=== PATIENT | male | born 1955 | race African-American/Black ===

== ENCOUNTER 2024-11-16 09:33 | Emergency (ER) | payer OTHER, SELFPAY ==
[2024-11-16 09:45] VITALS: BP 148/96
[2024-11-16 10:20] LABS: % Basophils 0.5 % (0-2); % Eosinophils 1.2 % (0-6); % Immature Granulocytes 0.2 % (0-0.5); % Lymphocytes 16.4 % (20.5-51.1); % Monocytes 8.9 % (1.7-9.3); % Neutrophils 72.8 % (42.2-75.2); Absolute Eosinophils 0.1 10^3/uL (0-0.7); Absolute Lymphocytes 0.9 10^3/uL (1.2-3.4); Absolute Monocytes 0.5 10^3/uL (0.1-0.6); Absolute Neutrophils 4.2 10^3/uL (1.4-6.5); Hematocrit 43.9 % (39.0-52.0); Hemoglobin 13.2 g/dL (13.0-18.0); Mean Corp Hgb Conc. 30.1 g/dL (33.0-37.0); Mean Corpuscular Hgb 24.6 pg (27.0-31.0); Mean Corpuscular Volume 81.9 fL (80.0-94.0); Mean Platelet Volume 12.6 fL (7.4-10.4); Nucleated Red Blood Cells % 0 % (-); Platelet Count 158 10^3/uL (130-400); Red Blood Cell Count 5.36 10^6/uL (4.70-6.10); Red Cell Dist. Width 13.1 % (11.5-14.5); White Blood Cell Count 5.7 10^3/uL (4.8-10.8)
[2024-11-16 10:32] LABS: ALT (SGPT) 22 U/L (0-50); AST (SGOT) 24 U/L (17-59); Albumin 4.4 g/dl (3.5-5.0); Alkaline Phosphatase 83 U/L (38-126); Blood Urea Nitrogen 22 mg/dl (9-20); Calcium 8.9 mg/dl (8.4-10.2); Carbon Dioxide 30 mmol/L (22-30); Chloride 103 mmol/L (98-107); Glucose 102 mg/dl (70-99); Potassium 4.1 mmol/L (3.5-5.1); Sodium 141 mmol/L (135-145); Total Bilirubin 0.8 mg/dl (0.2-1.3); Total Protein 7.2 g/dl (6.3-8.2); eGFR 58.73
[2024-11-16 10:37] LABS: COVID-19 Antigen Negative (Negative)
[2024-11-16 12:05] VITALS: BP 176/92
[2024-11-16 13:41] VITALS: BP 146/113
[2024-11-16 13:42] VITALS: BMI 32.8
--- NOTE | 2024-11-16 13:56 | ED.GENMED ---
History of Present Illness
General
Chief Complaint: Breathing Problem
Source: patient and family
Exam Limitations: none
Time Seen by Provider: 11/16/24 13:46
History of Present Illness
History of Present Illness:
See MDM
Past History
Past History
ED Past Medical History: Arrthythmia, Cancer, COPD and HTN
ED Past Surgical History: Brain
Social History
Tobacco: Former smoker
Alcohol: None
Phy Exam
Physical Exam
Physical Exam:
See MDM
Scores
Heart Failure Risk
Heart Failure Risk Score: Not Applicable
Course
Orders/Labs/Results
Orders:
Orders
11/16/24 09:35
Electrocardiogram (*1) Urgent
Reason for Study: Shortness of Breath
EKG- Treatment ONCE
11/16/24 09:53
CR Chest - 2 Views Urgent
Comment:
Reason For Exam: SOB
11/16/24 10:01
COVID-19 Antigen Urgent
Source: Nasal Swab
Complete Blood Count/With Diff Urgent
Comprehensive Metabolic Panel Urgent
Influenza A+B Rapid Molecular Urgent
SANDRO Source: Nasal Swab
Specimen Description:
11/16/24 13:55
Diltiazem HCl [Cardizem] 10 mg IV NOW STA
Ipratropium/Albuterol Sulfate [Duoneb] 3 ml INH R NOW STA
11/16/24 15:18
Amoxicillin 875 mg/Clav 125 mg [Augmentin 875 mg/125 mg] 1 tablet PO NOW STA
Doxycycline [Vibramycin] 100 mg PO NOW STA
Abnormal Lab Results
11/16/24
10:01
MCH 24.6 L pg
(27.0-31.0)
MCHC 30.1 L g/dL
(33.0-37.0)
MPV 12.6 H fL
(7.4-10.4)
Absolute Lymphs (auto) 0.9 L 10^3/uL
(1.2-3.4)
Lymphocytes % 16.4 L %
(20.5-51.1)
BUN 22 H mg/dl
(9-20)
Glucose 102 H mg/dl
(70-99)
11/16/24 10:01
11/16/24 10:01
Vital Signs
Initial and Last Documented VS:
Initial Vital Signs
Temp Pulse Resp BP Pulse Ox
97.7 F 60 16 148/96 99
11/16/24 09:45 11/16/24 09:45 11/16/24 09:45 11/16/24 09:45 11/16/24 09:45
Last Documented Vital Signs
Temp Pulse Resp BP Pulse Ox
97.5 F 76 22 145/100 98
11/16/24 12:05 11/16/24 14:45 11/16/24 14:45 11/16/24 14:27 11/16/24 14:45
MDM/Problems Addressed
Differential Diagnosis Includes:
HPI and MDM Narrative:
69-year-old male presenting with significant other for evaluation of cough and shortness of breath. This has been ongoing for the past few days. The cough is somewhat productive and worse when he lays flat. Patient is mildly confused but this is
baseline per spouse.
Spouse is more concerned that this could be fluid in his lungs or potentially fluid around his heart. Patient does have a history of A-fib. He is not certain what are his symptoms of A-fib. Spouse believes that is mostly related to a wet cough
and leg edema. He currently does not have any leg edema. Patient is in in A-fib/a flutter rhythm. Will give dose of IV Cardizem. Patient states he has never been cardioverted in the past. Patient does have wheezing and he does have a history of
COPD. Will give dose of DuoNeb and obtain chest x-ray.
Physical exam
General: Well appearing and non-toxic
HEENT: protecting airway
Neck: appears supple
CV: No evidence of cyanosis. Regular rate, irregular rhythm
Resp: No accessory muscle use. Mild expiratory wheezing at bases
Abd: Non-distended
Extremities: Peripheral vascular disease skin changes
Neuro: alert
Psych: Normal affect
Skin: Intact
Problems Addressed including Acute and Chronic Conditions affecting care:
1. Shortness of breath
Acuity: acute
Prognosis: stable
Details: Given the wheezing, will start DuoNeb. Will obtain chest x-ray.
2. A-fib
Acuity: acute
Prognosis: stable
Details: He is rate controlled. He is not a great cardioversion candidate. Will give dose of IV Cardizem
Updates
Chest x-ray concerning for left lower lobe pneumonia. I did offer admission but patient states he feels comfortable going home. Will start doxycycline and Augmentin and discuss strict return precautions.
After Cardizem, patient is rate controlled and denies chest pain or palpitations
Differential Diagnosis (but not limited to): COPD exacerbation, pneumonia, symptomatic A-fib
Testing considered: Troponin
Drug therapy (if applicable): OTC meds, please see d/c instruction regarding Rx drugs
Amount and/or Complexity of Data Reviewed
Clinical info obtained from: Patient and spouse
External data reviewed: N/A
Labs I independently reviewed (but not limited to): White blood cell count normal
Radiology: X-ray independently reviewed: Chest x-ray consistent with left lower lobe
Pulse Ox: not hypoxic
EKG independently reviewed: A flutter, left axis, no STEMI
Him Coder: A-fib
Critical Care: N/A
Risk of Complication:
Social Determinants of health: Good social support
Discussed with other providers: N/A
Escalation of Care includes Admit/Obs: After being observed in the Emergency Department, pt stable for discharge.
Occasional wrong word or 'sound a like' substitutions may have occurred due to the inherent limitations of voice recognition software. Read the chart carefully and recognize, using context, where substitutions have occurred.
*Critical Care Note
Total Time (30-74mins, 75-104mins- exclusive of procedures): Not Applicable
ED Attending Note
-
Portions of this chart may have been created with voice recognition software.� Occasional wrong word or��sound alike� substitutions may have occurred due to the inherent limitations of voice recognition software.
Discharge Plan
Departure
Patient Disposition: Home (Routine Discharge)
Date of Disposition: 11/16/24
Time of Disposition: 15:19
Patient with high blood pressure during this ER visit?: Yes
Discharge Problem:
PNA (pneumonia)
Instructions: Atrial fibrillation, Pneumonia
Prescriptions:
New
doxycycline hyclate 100 mg capsule
100 mg PO BID Qty: 20 0RF
amoxicillin-pot clavulanate 875-125 mg tablet
1 tab PO BID Qty: 20 0RF
albuterol sulfate 2.5 mg/0.5 mL solution for nebulization
5 mg inhalation Q6H PRN (Reason: shortness of breath or wheezing) Qty: 30 0RF
No Action
furosemide 40 mg tablet
40 mg PO DAILY
atorvastatin 20 mg tablet
20 mg PO DAILY
metoprolol succinate 100 mg tablet extended release 24 hr
100 mg PO DAILY
tamsulosin 0.4 mg capsule
0.4 mg PO HS
warfarin 2 mg tablet
6 mg PO MOWEFR
lisinopril 40 mg tablet
40 mg PO DAILY
warfarin 2 mg Tablet
2 mg PO SUTUTHSA
albuterol sulfate 2.5 mg /3 mL (0.083 %) Solution For Nebulization
2.5 mg INHALATION R QID
albuterol sulfate 90 mcg/actuation Hfa Aerosol Inhaler
2 puff INHALATION Q4H
Referrals:
NONE,* [Family Provider] -
Activity Restrictions/Additional Instructions:
Please return for any worsening symptoms.
You may return at any time if you have further concerns.
Please follow up with your doctor at the first available appointment, preferably this week.
Thank you for choosing [facility].
Interventions
Interventions:
*Risk Screen - Suicide Last Done: 11/16/24 09:45
*Neglect/Abuse Screening Last Done: 11/16/24 13:44
ED- Fall Risk Assessment Last Done: 11/16/24 13:45
*ED COVID-19 Vaccine History Last Done: 11/16/24 13:44
ED- Cardiac Assessment Last Done: 11/16/24 13:45
ED- Pulmonary Assessment Last Done: 11/16/24 13:45
Discharge Date and Time
Print Language: YAKUT
[2024-11-16 14:00] VITALS: BP 145/100
[2024-11-16] MEDS: DUONEB 3 ML INH (14:19)
[2024-11-16] MEDS: CARDIZEM 10 MG IV (14:26)
[2024-11-16 14:27] VITALS: BP 145/100
[2024-11-16] MEDS: AUGMENTIN 875 MG/125 MG 1 TABLET PO (15:27)
[2024-11-16] MEDS: VIBRAMYCIN 100 MG PO (15:27)
[2024-11-16 15:31] VITALS: BP 148/99
== END 2024-11-16 15:51 | disposition home or self-care (01) ==
LOC: EMR 09:33
PROVIDERS: Emergency Medicine; EMERGENCY PHYSICIAN Student in an Organized Health Care Education/Training Program
DX: J18.9 Pneumonia, unspecified organism (principal); J44.0 Chronic obstructive pulmonary disease with (acute) lower respiratory infection; I11.0 Hypertensive heart disease with heart failure; I50.9 Heart failure, unspecified; Z87.891 Personal history of nicotine dependence
CPT/HCPCS: 99283; 94640; 96374; 71046; 80053; 85025; 87502; 87811; 93005

== ENCOUNTER 2024-11-20 06:08 | Inpatient (IN) | payer OTHER, SELFPAY ==
[2024-11-19 23:41] VITALS: BP 137/78; BMI 34.4
[2024-11-19 23:43] VITALS: BP 137/78
[2024-11-20] VITALS (40 sets, daily range): BP systolic 110–178; BP diastolic 71–116; BMI 33.8
[2024-11-20 00:03] LABS: % Basophils 0.4 % (0-2); % Immature Granulocytes 0.4 % (0-0.5); % Lymphocytes 5.4 % (20.5-51.1); % Neutrophils 80.8 % (42.2-75.2); Absolute Lymphocytes 0.4 10^3/uL (1.2-3.4); Absolute Monocytes 0.9 10^3/uL (0.1-0.6); Absolute Neutrophils 5.7 10^3/uL (1.4-6.5); Hematocrit 42.6 % (39.0-52.0); Hemoglobin 13.4 g/dL (13.0-18.0); Mean Corp Hgb Conc. 31.5 g/dL (33.0-37.0); Mean Corpuscular Hgb 24.8 pg (27.0-31.0); Mean Corpuscular Volume 78.7 fL (80.0-94.0); Mean Platelet Volume 11.9 fL (7.4-10.4); Nucleated Red Blood Cells % 0 % (-); Platelet Count 124 10^3/uL (130-400); Red Blood Cell Count 5.41 10^6/uL (4.70-6.10); Red Cell Dist. Width 13.1 % (11.5-14.5)
[2024-11-20 00:18] LABS: INR 1.36
[2024-11-20 00:21] LABS: ALT (SGPT) 23 U/L (0-50); AST (SGOT) 37 U/L (17-59); Albumin 4.5 g/dl (3.5-5.0); Alkaline Phosphatase 82 U/L (38-126); Blood Urea Nitrogen 26 mg/dl (9-20); Calcium 9.2 mg/dl (8.4-10.2); Carbon Dioxide 23 mmol/L (22-30); Chloride 104 mmol/L (98-107); Estimated Creatinine Clearance 55 ml/min; Glucose 105 mg/dl (70-99); Potassium 4.2 mmol/L (3.5-5.1); Sodium 140 mmol/L (135-145); Total Bilirubin 1.6 mg/dl (0.2-1.3); Total Protein 7.3 g/dl (6.3-8.2); eGFR 45.78
[2024-11-20 00:41] LABS: NT-proBNP 3600 pg/ml
[2024-11-20 00:54] LABS: Lactic Acid 1.8 mmol/L (0.7-2.0)
--- NOTE | 2024-11-20 00:57 | ED.GENMED ---
History of Present Illness
General
Chief Complaint: Weakness
Source: patient
Exam Limitations: none
Time Seen by Provider: 11/20/24 00:36
History of Present Illness
History of Present Illness:
See MDM
Past History
Past History
ED Past Medical History: Arrthythmia, Cancer, COPD and HTN
ED Past Surgical History: Brain
Social History
Tobacco: Former smoker
Alcohol: None
Phy Exam
Physical Exam
Physical Exam:
See MDM
Course
Orders/Labs/Results
Orders:
Orders
11/19/24 23:49
Electrocardiogram (*1) Urgent
Reason for Study: Tachycardia
EKG- Treatment ONCE
11/19/24 23:51
CMP [Comprehensive Metabolic Panel] Urgent
Complete Blood Count/With Diff Urgent
PT/INR [Prothrombin Time] Urgent
11/19/24 23:57
Lactic Acid Urgent
NT-proBNP Urgent
11/20/24 00:01
CT Head W/o Iv Contrast Urgent
Reason For Exam: fall on warfarin
11/20/24 00:03
CR Chest - 2 Views Urgent
Reason For Exam: tachycardic, recent pneumonia
11/20/24 00:57
Furosemide [Lasix] 40 mg IV NOW STA
11/20/24 01:01
Diltiazem HCl [Cardizem] 10 mg IV NOW STA
11/20/24 02:14
Diltiazem 125 mg/125 ml Nss [Cardizem] 125 mg in 125 ml IV NOW
Initial dose in mg/hr, then titrate:: 5
Titrate to keep:: Heart rate 80-100 bpm
Titrate by mg/hr:: 5 mg/hr
Frequency of titrations (minutes):: 15
Maximum dose in mg/hr:: 15
11/20/24 02:26
Catheter [Vale Placement- Treatment] ONCE
Reason for insertion: Acute Retention
11/20/24 06:00
CT Head W/o Iv Contrast Urgent
Comment:
Reason For Exam: fall, eval for bleed per rads
Abnormal Lab Results
11/19/24 11/20/24
23:51 02:08
MCV 78.7 L fL
(80.0-94.0)
MCH 24.8 L pg
(27.0-31.0)
MCHC 31.5 L g/dL
(33.0-37.0)
Plt Count 124 L D 10^3/uL
(130-400)
MPV 11.9 H fL
(7.4-10.4)
Absolute Lymphs (auto) 0.4 L 10^3/uL
(1.2-3.4)
Absolute Monos (auto) 0.9 H 10^3/uL
(0.1-0.6)
Neutrophils % 80.8 H %
(42.2-75.2)
Lymphocytes % 5.4 L %
(20.5-51.1)
Monocytes % 13.0 H %
(1.7-9.3)
PT 17.0 H Sec
(11.4-14.6)
BUN 26 H mg/dl
(9-20)
Creatinine 1.6 H mg/dL
(0.7-1.3)
Glucose 105 H mg/dl
(70-99)
Total Bilirubin 1.6 H mg/dl
(0.2-1.3)
POC Glucose 101 H mg/dl
(70-99)
11/19/24 23:51
11/19/24 23:51
Vital Signs
Initial and Last Documented VS:
Initial Vital Signs
Temp Pulse Resp BP Pulse Ox
98.3 F 135 18 137/78 96
11/19/24 23:41 11/19/24 23:41 11/19/24 23:41 11/19/24 23:41 11/19/24 23:41
Last Documented Vital Signs
Temp Pulse Resp BP Pulse Ox
98.3 F 135 30 178/116 95
11/19/24 23:41 11/20/24 02:03 11/20/24 02:03 11/20/24 02:03 11/20/24 02:03
MDM/Problems Addressed
Differential Diagnosis Includes:
HPI and MDM Narrative:
69-year-old male presenting to the emergency department for persistent weakness and frequent falls. Patient was just seen in the emergency department yesterday and diagnosed with presumed pneumonia. He was started on antibiotics. He was offered
admission at that time but patient refused. Patient presents back to the emergency department. Chest x-ray concerning for congestive heart failure. Is not certain whether or not patient is compliant with medicines. Given that patient is weak and
having trouble walking, will start IV Lasix and admit
Physical exam
General: Disheveled
HEENT: protecting airway. Dry mucous membranes
Neck: appears supple
CV: No evidence of cyanosis
Resp: No accessory muscle use. Mild crackles at bases
Abd: Non-distended
Extremities: No deformities
Neuro: alert
Psych: Flat affect
Skin: Intact
Problems Addressed including Acute and Chronic Conditions affecting care:
1. Acute exacerbation of congestive heart failure
Acuity: acute
Prognosis: stable
Details: BNP is increasing. Chest x-ray concerning for CHF exacerbation. Will start IV Lasix
2. Frequent falls
Acuity: acute
Prognosis: stable
Details: Given his age and being on blood thinners, will obtain CT head
3. Wide QRS tachycardia
Acuity: acute
Prognosis: unstable
Details: Given his history of A-fib and a flutter, will give dose of IV Cardizem
Updates
1 AM vision radiology indicating the possibility of a subdural. This is around his postsurgical site. There is no prior to compare to. Will repeat CT at 6 AM to ensure no evidence of expanding hemorrhage
2:15 AM the initial Cardizem bolus helped but he quickly went back to a tachyarrhythmia. Will place on Cardizem drip
226 AM bedside ultrasound found to have greater than 600 mL in urine. Will place catheter
Differential Diagnosis (but not limited to): Congestive heart failure, pneumonia, head injury
Testing considered: Blood cultures
Drug therapy (if applicable): OTC meds, please see d/c instruction regarding Rx drugs
Amount and/or Complexity of Data Reviewed
Clinical info obtained from: Patient
External data reviewed: N/A
Labs I independently reviewed (but not limited to): Elevated BNP
Radiology: X-ray independently reviewed: Chest x-ray with mild stage
Pulse Ox: not hypoxic
EKG independently reviewed: Wide QRS tachycardia, left bundle branch block, rate related lateral ischemic changes
Fire Alarm Dispatcher: Tachycardia
Critical Care: The high probability of a clinically significant, sudden or life threatening deterioration of the cardio pulmonary system(s) required my full and direct attention, intervention and personal management. The aggregate critical care time
was 33 minutes. This time is in addition to time spent performing reported procedures but includes the following:
[x] Data Review and interpretation
[x] Patient assessment and monitoring of vital signs
[x] Documentation
[x] Medication orders and management
Risk of Complication:
Social Determinants of health: Good social support
Discussed with other providers: Radiologist
Escalation of Care includes Admit/Obs: Given frequent falls and CHF exacerbation, will admit
Occasional wrong word or 'sound a like' substitutions may have occurred due to the inherent limitations of voice recognition software. Read the chart carefully and recognize, using context, where substitutions have occurred.
*Critical Care Note
Total Time (30-74mins, 75-104mins- exclusive of procedures): 33 min
ED Attending Note
-
Portions of this chart may have been created with voice recognition software.� Occasional wrong word or��sound alike� substitutions may have occurred due to the inherent limitations of voice recognition software.
Discharge Plan
Departure
Patient Disposition: Admit
Date of Disposition: 11/20/24
Time of Disposition: 01:02
Admit to: Telemetry
Presentation/result/management discussed w/ accepting MD/DO: Hospitalist
Discharge Problem:
Acute exacerbation of CHF (congestive heart failure), Atrial fibrillation with RVR, Acute urinary retention
Prescriptions:
No Action
furosemide 40 mg tablet
40 mg PO DAILY
atorvastatin 20 mg tablet
20 mg PO DAILY
metoprolol succinate 100 mg tablet extended release 24 hr
100 mg PO DAILY
tamsulosin 0.4 mg capsule
0.4 mg PO HS
warfarin 2 mg tablet
6 mg PO MOWEFR
lisinopril 40 mg tablet
40 mg PO DAILY
warfarin 2 mg Tablet
2 mg PO SUTUTHSA
albuterol sulfate 2.5 mg /3 mL (0.083 %) Solution For Nebulization
2.5 mg INHALATION R QID
albuterol sulfate 90 mcg/actuation Hfa Aerosol Inhaler
2 puff INHALATION Q4H
doxycycline hyclate 100 mg capsule
100 mg PO BID Qty: 20 0RF
amoxicillin-pot clavulanate 875-125 mg tablet
1 tab PO BID Qty: 20 0RF
albuterol sulfate 2.5 mg/0.5 mL solution for nebulization
5 mg inhalation Q6H PRN (Reason: shortness of breath or wheezing) Qty: 30 0RF
Referrals:
Nasir Farr DO [Family Provider] -
Interventions
Interventions:
*Risk Screen - Suicide Last Done: 11/19/24 23:41
*General Assessment Last Done: 11/19/24 23:41
*Neglect/Abuse Screening Last Done: 11/19/24 23:41
ED- Fall Risk Assessment Last Done: 11/20/24 00:20
*ED COVID-19 Vaccine History Last Done: 11/19/24 23:41
ED- Cardiac Assessment Last Done: 11/20/24 00:20
ED- Neurological Assessment Last Done: 11/20/24 00:20
ED- Pulmonary Assessment Last Done: 11/20/24 00:20
Discharge Date and Time
Print Language: POLISH
[2024-11-20] MEDS: LASIX 40 MG IV (01:13)
[2024-11-20] MEDS: CARDIZEM 10 MG IV (01:13)
[2024-11-20 02:09] LABS: Glucose - Point of Care 101 mg/dl (70-99)
[2024-11-20] MEDS: CARDIZEM 125 IV ×3 (02:25→21:20)
--- NOTE | 2024-11-20 05:10 | HPS.HSE ---
Family Physician
-
Family Physician: Nasir Farr
Chief Complaint
-
Falls and weakness
History of Present Illness
This is a 69-year-old male with a complex past medical history and unfortunately is unable to provide much history. Was present with the patient has a history of atrial fibrillation on anticoagulation, he has a preserved EF, he has a history of
benign brain tumor status post resection, he also has a history of thyroid nodules and lung nodule status post radiation, hypertension, hyperlipidemia and BPH who presents to the emergency department following a fall at home where he was called
twice before agreeing to come along with EMS.
Patient was seen in the emergency department approximately 2 days ago with a cough that sounded wet. Caregiver thought the patient might have some volume overload. At the time he was diagnosed with bronchitis and started on Augmentin and
doxycycline. Patient apparently was noncompliant. He does not take his Eliquis is not as a take the antibiotics that were prescribed including the Augmentin. He has been afebrile and caregiver denies any new cough. He had a fall today due to
weakness without loss of consciousness. There is no known seizure activity. Patient was supposedly on seizure medication but not compliant. He provides no history. He says he feels fine.
In the emergency department he was afebrile, his blood pressure was stable at 140/90 and he was tachycardic. ECG shows atrial fibrillation, likely atrial flutter with wide-complex and a 2-1 conduction. BNP was elevated at 600. Chest x-ray seems
similar to prior with small bilateral pleural effusion and mild interstitial infiltrates. CBC was unremarkable. BUN and creatinine are elevated compared to recent with a creatinine of 1.6. Electrolytes were normal.
Medical History
Past Medical History
Past Medical History: Reports Arrhythmia (Atrial fibrillation on anticoagulation), CAD (Benign brain mass s/p resection, history of lung nodules status post XRT, history of thyroid nodules pending evaluation.), HTN and Hypercholesterolemia
Past Surgical History: Reports Brain (Status post craniectomy with brain mass resection)
Social History
Unable to obtain full social history at this time due to: Dementia
Living: With Roomate
Employment: Not Employed
Family History
Family History: Not pertinent
Allergies / Home Medications
Allergies reflects when Allergies were last updated in [facility].
Home Medications with original date entered in [facility]
Allergy/Medication List:
Allergies
Allergy/AdvReac Type Severity Reaction Status Date / Time
No Known Allergies Allergy Verified 11/19/24 23:48
Home Medications
albuterol sulfate 2.5 mg/3 mL (0.083 %) solution for nebulization 2.5 mg inhalation R QID 09/11/22
albuterol sulfate 90 mcg/actuation aerosol inhaler 2 puff inhalation Q4H sob 09/11/22
atorvastatin 20 mg tablet 20 mg PO DAILY 09/11/22
lisinopril 20 mg tablet 40 mg PO DAILY Blood pressure 09/11/22
tamsulosin 0.4 mg capsule 0.4 mg PO HS 09/11/22
albuterol sulfate 2.5 mg/0.5 mL solution for nebulization 5 mg inhalation Q6H PRN shortness of breath or wheezing #30 ea 11/16/24
amoxicillin 875 mg-potassium clavulanate 125 mg tablet 1 tab PO BID #20 tabs 11/16/24
doxycycline hyclate 100 mg capsule 100 mg PO BID #20 caps 11/16/24
Diltiazem extended release 120 mg tablet, 120 mg p.o. daily
Eliquis 5 mg tablet, 5 mg p.o. twice daily
Review of Systems
-
Unable to obtain full review of systems at this time due to: Dementia
Physical Exam
Vital Signs
Vital Signs
Temp Pulse Resp BP Pulse Ox
98.3 F 93 20 136/92 94
11/19/24 23:41 11/20/24 05:00 11/20/24 05:00 11/20/24 05:00 11/20/24 05:00
Physical Exam
General: No Apparent Distress, Comfortable and Appears Chronically Ill
HEENT: NormoCephalic, Anicteric, Moist mucous membranes, Atraumatic and PERRLA
Respiratory: Clear
Cardiac: S1/S2, Irregular Rhythm and Tachycardia
Breast: Deferred by me
GI: Soft, Non Tender, Non Distended and Normal Bowel Sounds
Genito-urinary: Turbid Urine and Vale
Musculoskeletal: No Clubbing, No Cyanosis and No Edema
Skin: Warm
Neuro: Alert, Oriented (oriented to person and place, not to time) and Nonfocal/grossly intact
Hematologic/Lymphatic: No Lymphadenopathy
Psych: Calm
Laboratory Results
-
11/19/24 23:51
11/19/24 23:51
Laboratory Results
PT 17.0 Sec (11.4-14.6) H 11/19/24 23:51
INR 1.36 11/19/24 23:51
Lactic Acid 1.8 mmol/L (0.7-2.0) 11/20/24 00:06
Total Bilirubin 1.6 mg/dl (0.2-1.3) H 11/19/24 23:51
AST 37 U/L (17-59) 11/19/24 23:51
ALT 23 U/L (0-50) 11/19/24 23:51
Alkaline Phosphatase 82 U/L (38-126) 11/19/24 23:51
Data Reviewed
-
Diagnostic Radiology: Image Personally Visualized and interpreted
Medical Tests (Nuc Med, Echo, EKG etc): Image Personally Visualized and interpreted
Lab Data: Labs Reviewed by me
Old Records: Reviewed
Impression/Plan
-
IMPRESSION:
69 y.o here after a fall at home found to be in rapid SVT, ECG c/w aflutter w 2:1 conduction. BNP newly elevated at 3600. ECG is equivocal with likely small jean claude pleural effusions. No signs of significant total body volume overload. Labs notable
for worsening creatinine from 1.3 to 1.6 but may be within his baseline range. He is unfortunately a poor historian and care-give was not very helpful with specific information. CT head shows possible small bleed vs post-surgical changes. No
midline shift or mass effect.
PLAN:
1. AFIB - Known afib now in RVR and mild CHF likely due to non compliance
- admit to ivu
- patient non-compliant with eliquis, will hold for now pending repeat CT
- on diltiazem gtt, not compliant with home diltiazem 120mg
- HD stable for now
- will give gentle diuresis 20mg iv bid
- cardiology consult
2. Bronchitis - No cough but was recently seen in ED with prescription for nebs and abx. Non-compliant with either
- complete course of doxycycline for now
- prn nebs
3. HTN
- continue lisinopril 20mg daily
4. Fall - Possibly due to rapid afib
- tx of afib as above
- PTOT eval
- uncertain if patient can maintain at home by self. He has remained non-compliant with medications but seem he would take them with appropriate supervision. Case management consult
DVT PPX - SCDs pending CT scan findings
Code status - previously stated as DNR, currently full code pending re-evaluation
--- NOTE | 2024-11-20 07:32 | EDRN ---
the pt was received from the previous supervisor dials nurse Erica BARRON, the pt is resting in stretcher in the lowest position, side rails up x2, call emerson within reach, HOB elevated, call emerson within reach, no s/s of distress, the pt has no c/o chest
pain, no c/o SOB, VS WNL, no s/s of distress, when this RN received the pt he was on 10mg/hr of Cardizem and this RN titrated the pt to 15mg/hour of Cardizem via Left upper arm PIV, assessment documented in work list, respiratory currently at the
pts bedside, will continue to monitor the pt closely
[2024-11-20] MEDS: VENTOLIN NEBULES 2.5 MG INH ×4 (07:33→20:36)
--- NOTE | 2024-11-20 08:14 | EDRN ---
this RN called the receiving IVU nurse Adam BARRON and gave verbal report
--- NOTE | 2024-11-20 08:56 | W.PN.HOSP.TC ---
Today's Communication/Plan
-
see bold
Assessment / Plan
Assessment / Plan
HPI: 69-year-old male with a complex past medical history and unfortunately is unable to provide much history. Was present with the patient has a history of atrial fibrillation on anticoagulation, he has a preserved EF, he has a history of benign
brain tumor status post resection, he also has a history of thyroid nodules and lung nodule status post radiation, hypertension, hyperlipidemia and BPH who presents to the emergency department following a fall at home where he was called twice
before agreeing to come along with EMS.
Patient was seen in the emergency department approximately 2 days ago with a cough that sounded wet. Caregiver thought the patient might have some volume overload. At the time he was diagnosed with bronchitis and started on Augmentin and
doxycycline. Patient apparently was noncompliant. He does not take his Eliquis is not as a take the antibiotics that were prescribed including the Augmentin.
#Rapid atrial fibrillation, known
Patient not compliant with taking his Cardizem or Eliquis
Appreciate cardiology input, continue Cardizem drip, check echocardiogram
Continue Eliquis
#Acute on chronic heart failure with a preserved ejection fraction
Continue IV Lasix, trend creatinine, trend daily weights
#Acute urinary retention requiring Vale insertion on 11/20
Maintain Vale for 3 days, started on Flomax
Reports he is removing his bowels
#Essential hypertension
Continue lisinopril 20 mg daily
#Medical noncompliance
#Fall
Patient lives with his girlfriend, who would like him placed
Consult PT/OT
#Recent bronchitis
Finished course of doxycycline
#Cognitive impairment
Patient thinks it is 2004
Recommend neuropsychiatric testing outpatient
#Hyperlipidemia
Continue statin
#Obesity due to excess calories
Affects all aspects of care
DVT prophylaxis�Eliquis
Full code
Physical Exam
General: Obese, no acute distress
HEENT: Normocephalic, Atraumatic, EOMI, MMM
Respiratory: Bibasilar crackles
Cardiac: Normal S1/S2, tachycardic rate rate and Rhythm
GI: Soft, Nontender, Nondistended, Normal Bowel Sounds
Extremities: No Clubbing, Cyanosis
Mild lower extremity edema
Neuro: Nonfocal/Grossly Intact
Anticipated Discharge: > 48 hours
Subjective/Interval History
-
Date of Service: November 20, 2024
Patient denies chest pain, shortness of breath, palpitations. No nausea, no vomiting. No fever
Objective Data
-
Labs:
Laboratory Results
11/19/24
23:51
WBC 7.0
Hgb 13.4
Hct 42.6
Plt Count 124 L D
PT 17.0 H
INR 1.36
Sodium 140
Potassium 4.2
Chloride 104
Carbon Dioxide 23
BUN 26 H
Creatinine 1.6 H
Glucose 105 H
Calcium 9.2
Total Bilirubin 1.6 H
AST 37
ALT 23
Alkaline Phosphatase 82
Vital Signs:
Vital Signs
Temp Pulse Resp BP Pulse Ox
98.5 F 98 19 150/89 98
11/20/24 07:27 11/20/24 07:39 11/20/24 07:39 11/20/24 07:30 11/20/24 07:39
I&O
11/19/24 11/20/24 11/21/24
06:59 06:59 06:59
Output Total 1550 / 1550
Balance -1550 / -1550
--- NOTE | 2024-11-20 09:21 | PTCARENOTE ---
Patient admitted to IVU. Patient A0 x 2-3 can't tell me the year, knows the month, arm tremors, weak, speech slightly garbled. Pulled form stretcher to bed. A-fib HR 102, BP 146/88. Decreased breath sounds, coughing up thick white mucous, feels
warm, afebrile POX 98% on room air. Cardizem gtt at 15mg/hr. Plan of care reviewed, alarm placed on bed, hx of falls. Otis pain or shortness of breath, call emerson in reach
[2024-11-20] MEDS: VIBRAMYCIN 100 MG PO ×2 (09:38→20:16)
[2024-11-20] MEDS: LIPITOR 20 MG PO (09:39)
[2024-11-20] MEDS: ZESTRIL 20 MG PO (09:39)
[2024-11-20] MEDS: LASIX 20 MG IV ×2 (09:39→16:34)
--- NOTE | 2024-11-20 09:42 | CON.CAR ---
Addendum entered and electronically signed by Jerry Atkinson MD 11/20/24 12:14:
Patient seen and examined in collaboration with HOUSEKEEPER; agree with below.
-69-year-old male with paroxysmal atrial fibrillation/flutter (on Eliquis), chronic HFpEF, hypertension, hyperlipidemia, chronic LBBB, CKD, COPD, and brain tumor status-post resection admitted after a fall at home; cardiology consulted for A-fib
with RVR and suspected CHF (BNP 3600)--the patient is being treated for pneumonia as well.
-It does not appear that the patient is on Lasix at home; continue Lasix 20 mg IV BID for now.
-Continue Cardizem drip for now.
-Echocardiogram on Friday.
-Will follow.
Original Note:
Consultation
Consultation Request
Date/Time Consultation Requested: 11/20/24 6:45a
Date/Time Consultation Performed: 11/20/24 9:45a
Requesting Provider: Dr. Nielsen
Performing Provider: JUANITA Tilley for Dr. Atkinson
Reason for Consultation: acute HFpEF, rapid Afib
Medical History
-
Chief Complaint: fall
History of Present Illness:
Mr. Nichols is a 69 yo male with paroxysmal Afib/Aflutter on Eliquis, chronic HFpEF, HTN, HLD, BPH, benign brain tumor s/p resection, and is a poor historian, who presents to the ER after a fall at home. He was seen in the ER 2 days ago, diagnosed
with bronchitis and given antibiotics which he has not been taking. Concern for medication noncompliance (including Eliquis). We are consulted for rapid Afib and acute HFpEF. He reports feeling SOB at home and + cough. He states his Tahira
knows all his medications but not him. Afib rates are improved on IV Diltiazem and he was given IV Lasix in the ER.
Past Medical History
Past Medical History: Other (as above)
Past Surgical History: Other (as above)
Social History
Tobacco: Former Smoker
Alcohol: None
Personal:
Living: With Family
Employment: Retired
Family History
Family History: Unable to Obtain
Allergies / Home Medications
Allergy/AdvReac Type Severity Reaction Status Date / Time
No Known Allergies Allergy Verified 11/19/24 23:48
�Medication �Instructions �Recorded �Confirmed �Type
atorvastatin 20 mg tablet 20 mg PO DAILY 09/11/22 09/11/22 History
lisinopril 40 mg tablet 40 mg PO DAILY Blood pressure 09/11/22 09/11/22 History
doxycycline hyclate 100 mg capsule 100 mg PO BID #20 caps 11/16/24 Rx
Eliquis 11/20/24 History
Review of Systems
-
History Source: Patient
All other systems: Negative unless noted
Physical Exam
Vital Signs
Temp Pulse Resp BP Pulse Ox
98.5 F 96 22 135/80 99
11/20/24 07:27 11/20/24 08:45 11/20/24 08:45 11/20/24 08:45 11/20/24 08:45
Lab Results
11/19/24 23:51
11/19/24 23:51
Kyo-P-Utqfloscpzj Pept 3600 pg/ml 11/20/24 00:06
Physical Exam
General: Well Developed, Well Nourished and No Apparent Distress
HEENT: Normocephalic, Anicteric and Moist Mucous Membranes
Respiratory: Crackles (bibasilar), Rhonchi (b/l ) and Non Labored Respirations
Cardiac: S1/S2, Irregular Rhythm and Peripheral Edema (mild b/l LE)
Breast: Deferred by me
GI: Soft, Non Tender and Normal Bowel Sounds
Rectal: Deferred by Provider
Genito-urinary: Clear Urine
Musculoskeletal: No Clubbing and No Cyanosis
Skin: Warm and Dry
Neuro: AO x 3
Hematologic/Lymphatic: No Lymphadenopathy
Psych: Calm
Impression / Plan
-
HFpEF - acute on chronic.
- b/l pleural effusions on CXR, elevated proBNP.
- agree IV Lasix for diuresis, monitor daily weights, I&O, fluid/sodium restrictions.
Afib - rapid rates, improved with IV Diltiazem.
- [id number] VASc score is at least 3, on Eliquis at home. unsure about compliance with meds.
- he denies palpitations.
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 Ireland.
HTN - monitor on IV Diltiazem drip and continue home meds.
Bronchitis - acute, seen in ER 2 days ago, given antibiotics but did not take them.
Brain tumor - benign s/p resection.
- head CT with possible postsurgical SDH.
- per hospitalist.
Data Reviewed
-
EKG: Tracing Personally Visualized and interpreted (tachycardia with LBBB 135 bpm)
Radiology: Report Reviewed by me (CXR: small b/l pleural effusions, pulmonary edema)
Labs: Labs Reviewed by me
Old Records: Reviewed
[2024-11-20] MEDS: ELIQUIS 5 MG PO (20:16)
[2024-11-20] MEDS: FLOMAX 0.4 MG PO (20:18)
--- NOTE | 2024-11-20 21:58 | PTCARENOTE ---
Pt rec'd at change of shift eating late dinner. approx 50% consumed. Pt oriented upon assessment to name, date, place
however approx 15 mins later pt asked nursing what happened and why was he here, pt appeared confused when updated on days events.
bed alarm activated. pt repositioned with pillows. Cardizem gtt decreased to 10 mg /hr with ht rates maintaining in 70's.
[2024-11-21] VITALS (18 sets, daily range): BP systolic 91–147; BP diastolic 60–117; PULSE 90–125; O2SAT 94; BMI 33.4
[2024-11-21 04:41] LABS: Hematocrit 42.4 % (39.0-52.0); Hemoglobin 13.1 g/dL (13.0-18.0); Mean Corp Hgb Conc. 30.9 g/dL (33.0-37.0); Mean Corpuscular Hgb 24.9 pg (27.0-31.0); Mean Corpuscular Volume 80.5 fL (80.0-94.0); Mean Platelet Volume 12.5 fL (7.4-10.4); Platelet Count 123 10^3/uL (130-400); Red Blood Cell Count 5.27 10^6/uL (4.70-6.10); White Blood Cell Count 5.2 10^3/uL (4.8-10.8)
[2024-11-21 04:58] LABS: Blood Urea Nitrogen 34 mg/dl (9-20); Calcium 8.4 mg/dl (8.4-10.2); Carbon Dioxide 28 mmol/L (22-30); Chloride 98 mmol/L (98-107); Estimated Creatinine Clearance 51 ml/min; Glucose 112 mg/dl (70-99); HDL Cholesterol 38 mg/dl; LDL Cholesterol, Calculated 23 mg/dl; Magnesium 2.1 mg/dl (1.6-2.3); Potassium 3.7 mmol/L (3.5-5.1); Sodium 140 mmol/L (135-145); Total Cholesterol 75 mg/dl (50-199); Triglyceride 70 mg/dl (10-149); Very Low Density Lipoprotein 14 mg/dl (0-30); eGFR 42.57
[2024-11-21] MEDS: ELIQUIS 5 MG PO ×2 (08:01→19:45)
[2024-11-21] MEDS: VIBRAMYCIN 100 MG PO ×2 (08:01→19:45)
[2024-11-21] MEDS: LIPITOR 20 MG PO (08:02)
[2024-11-21] MEDS: ZESTRIL 20 MG PO (08:02)
[2024-11-21] MEDS: LASIX 20 MG IV (08:02)
[2024-11-21] MEDS: VENTOLIN NEBULES 2.5 MG INH ×4 (08:20→21:01)
--- NOTE | 2024-11-21 08:33 | W.PN.HOSP.TC ---
Today's Communication/Plan
-
see bold
Assessment / Plan
Assessment / Plan
HPI: 69-year-old male with a complex past medical history and unfortunately is unable to provide much history. Was present with the patient has a history of atrial fibrillation on anticoagulation, he has a preserved EF, he has a history of benign
brain tumor status post resection, he also has a history of thyroid nodules and lung nodule status post radiation, hypertension, hyperlipidemia and BPH who presents to the emergency department following a fall at home where he was called twice
before agreeing to come along with EMS.
Patient was seen in the emergency department approximately 2 days ago with a cough that sounded wet. Caregiver thought the patient might have some volume overload. At the time he was diagnosed with bronchitis and started on Augmentin and
doxycycline. Patient apparently was noncompliant. He does not take his Eliquis is not as a take the antibiotics that were prescribed including the Augmentin.
#Rapid atrial fibrillation, known
Patient not compliant with taking his Cardizem or Eliquis
Appreciate cardiology input, continue Cardizem drip, echocardiogram requested
Continue Eliquis
#Acute on chronic heart failure with a preserved ejection fraction
Hold IV Lasix secondary to BUN/creatinine
Trend creatinine, trend daily weights
#Acute kidney injury
Creatinine 1.7 today, was 1.6, was 1.3
Hold IV Lasix, hold lisinopril
Trend creatinine
#Acute urinary retention requiring Vale insertion on 11/20
Maintain Vale for 3 days, started on Flomax
Reports he is removing his bowels
#Essential hypertension
Hold lisinopril 20 mg daily due to SRIDHAR
#Medical noncompliance
#Fall
Patient lives with his girlfriend, who would like him placed
PT/OT
#Tremors
Possibly intentional tremor, monitor, consider beta-carlos
#Recent bronchitis
Finish course of doxycycline
#Cognitive impairment suspicious for dementia
Patient thinks it is 2004
TSH and B12 normal
Recommend neuropsychiatric testing outpatient
#Hyperlipidemia
Continue statin
#Obesity due to excess calories
Affects all aspects of care
DVT prophylaxis�Eliquis
Full code
Total time spent to see the patient on the floor, examine the patient, review data and lab results, discuss treatment plan with patient, nursing staff around 51 minutes.
Physical Exam
General: Obese, no acute distress
HEENT: Normocephalic, Atraumatic, EOMI, MMM
Respiratory: Bibasilar crackles
Cardiac: Normal S1/S2, tachycardic rate rate and Rhythm
GI: Soft, Nontender, Nondistended, Normal Bowel Sounds
Extremities: No Clubbing, Cyanosis
Mild lower extremity edema
Neuro: Nonfocal/Grossly Intact
Anticipated Discharge: 24 - 48 hours
Subjective/Interval History
-
Date of Service: November 21, 2024
Patient denies chest pain, shortness of breath, or palpitations. No fever, no vomiting.
Objective Data
-
Labs:
Laboratory Results
11/21/24
03:32
WBC 5.2
Hgb 13.1
Hct 42.4
Plt Count 123 L
Sodium 140
Potassium 3.7
Chloride 98
Carbon Dioxide 28
BUN 34 H
Creatinine 1.7 H
Glucose 112 H
Calcium 8.4
Vital Signs:
Vital Signs
Temp Pulse Resp BP Pulse Ox
98.2 F 120 18 109/63 97
11/21/24 07:30 11/21/24 08:23 11/21/24 08:23 11/21/24 08:02 11/21/24 07:30
I&O
11/20/24 11/21/24 11/22/24
06:59 06:59 06:59
Output Total 1550 / 1550 1275 / 1275
Balance -1550 / -1550 -1275 / -1275
--- NOTE | 2024-11-21 09:38 | PTCARENOTE ---
HR 130's Cardizem gtt titrated up to 15mg/hr. Patient alert to self, time and confused to place, ricks not recall events leading up hospitalization, speech slightly garbled. Easily re-orients, Upper extremity tremors unchanged. Vale catheter to
gravity cloudy yellow urine. Bed and chair alarms audible for safety
[2024-11-21 12:37] LABS: Vitamin B12 459 pg/ml (239-931)
[2024-11-21] MEDS: CARDIZEM 125 IV (13:21)
--- NOTE | 2024-11-21 15:41 | W.PN.CD ---
Today's Communication / Plan
-
- Continue Lasix 20 mg IV BID.
- Continue Cardizem drip for now.
- Will add low-dose metoprolol tartrate 12.5 mg BID (may be limited by blood pressure to some degree).
Impression / Plan
-
69 yo male with paroxysmal Afib/Aflutter on Eliquis, chronic HFpEF, HTN, CKD, HLD, BPH, benign brain tumor s/p resection, and is a poor historian, who presents to the ER after a fall at home. He was seen in the ER 2 days ago, diagnosed with
bronchitis and given antibiotics which he has not been taking. Concern for medication noncompliance (including Eliquis). We are consulted for rapid Afib and acute HFpEF.
HFpEF - acute on chronic.
- b/l pleural effusions on CXR, elevated proBNP.
- Continue Lasix 20 mg IV BID.
- Continue to monitor daily weights, I&O, fluid/sodium restrictions.
Afib/flutter- rapid rates
- [id number] VASc score is at least 3, on Eliquis at home. unsure about compliance with meds.
- Continue Cardizem drip for now.
- Will add low-dose metoprolol tartrate 12.5 mg BID (may be limited by blood pressure to some degree).
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 Ireland.
HTN -
-Monitor with addition of metoprolol.
CKD -
-Continue to monitor renal function.
Bronchitis - acute, seen in [facility] ER 2 days ago, given antibiotics but did not take them.
-Management as per primary team; being treated with doxycycline.
Brain tumor - benign s/p resection.
- head CT with possible postsurgical SDH.
-Management per hospitalist.
Physical Exam
Vital Signs/Labs
Vital Signs
Temp Pulse Resp BP Pulse Ox
98.1 F 111 18 101/79 96
11/21/24 10:57 11/21/24 14:15 11/21/24 13:18 11/21/24 10:57 11/21/24 10:57
11/20/24 11/21/24 11/22/24
06:59 06:59 06:59
Actual Weight 115 kg 111.6 kg
11/21/24 03:32
11/21/24 03:32
PT 17.0 Sec (11.4-14.6) H 11/19/24 23:51
INR 1.36 11/19/24 23:51
Magnesium 2.1 mg/dl (1.6-2.3) 11/21/24 03:32
Triglycerides 70 mg/dl (10-149) 11/21/24 03:32
LDL Cholesterol, Calc 23 mg/dl 11/21/24 03:32
VLDL Cholesterol, Calc 14 mg/dl (0-30) 11/21/24 03:32
HDL Cholesterol 38 mg/dl 11/21/24 03:32
11/20/24
00:06
Qtl-M-Bsdgmrhspbq Pept 3600
Physical Exam
Constitutional: No acute distress
EENT: Anicteric
Cardiovascular: Pedal edema is absent, Rhythm/rate is irregular, Systolic murmur present (2/6) and S1S2 is normal
Respiratory: Respiratory effort normal and Lungs clear to auscul.
GI: Soft
Neuro/Psych: Alert and Oriented
Other: Skin (Warm, dry)
Data Reviewed
-
Date of Service: November 21, 2024
EKG: Tracing Personally Visualized and interpreted (Telemetry: Atrial fibrillation/flutter)
Labs: Labs Reviewed by me
[2024-11-21] MEDS: LOPRESSOR 12.5 MG PO (17:11)
--- NOTE | 2024-11-21 17:45 | PTCARENOTE ---
Patient in chair most of day requires an assist of 2 for transfers form bed to chair with rolling walker. He is AO 2-3 with periods of confusion and forgetfulness, has upper extremity intention tremors. NSR in the 80's. Cardizem gtt at 15mg/hr.
Vale cloudy yellow urine to gravity. Loose non-productive cough, lungs CTA, POX 100% on room air. Eating dinner, chair alarm in place, using call emerson for assistance during the day today
[2024-11-21] MEDS: FLOMAX 0.4 MG PO (21:41)
--- NOTE | 2024-11-21 21:50 | PTCARENOTE ---
Rec'd at change of shift. PT AAO*3 but forgetful of time and place. Pt easily redirected, forgetful, and with hand tremors at baseline. VSS and SR / Aflutter on TELE monitor with HR in the 80's. Pt denies any pain or discomfort at this time. Pt
kept on bed/chair alarm for safety. Cardizem infusing as ordered. See flowchart and MAR for full pt assessment and care. Pt resting with call emerson in reach.
[2024-11-21] MEDS: LOPRESSOR PO (23:48)
[2024-11-22] VITALS (29 sets, daily range): BP systolic 90–161; BP diastolic 57–142; BMI 33.6
[2024-11-22 00:09] LABS: Urine Albumin 3+ (Neg - Trace); Urine Bilirubin 1+ (Negative); Urine Character Cloudy (Clear); Urine Color Brown; Urine Glucose Negative (Negative); Urine Ketone 1+ (Negative); Urine Leukocyte 2+ (Negative); Urine Nitrite Positive (Negative); Urine Occult Blood 4+ (Negative); Urine Specific Gravity 1.025 (<1.030); Urine Urobilinogen 1+ (Neg - 1+)
[2024-11-22 04:37] LABS: Hematocrit 40.5 % (39.0-52.0); Hemoglobin 12.7 g/dL (13.0-18.0); Mean Corp Hgb Conc. 31.4 g/dL (33.0-37.0); Mean Corpuscular Volume 79.9 fL (80.0-94.0); Mean Platelet Volume 13.6 fL (7.4-10.4); Platelet Count 123 10^3/uL (130-400); Red Blood Cell Count 5.07 10^6/uL (4.70-6.10); Red Cell Dist. Width 13.1 % (11.5-14.5); White Blood Cell Count 6.7 10^3/uL (4.8-10.8)
[2024-11-22 04:45] LABS: Blood Urea Nitrogen 49 mg/dl (9-20); Calcium 8.5 mg/dl (8.4-10.2); Carbon Dioxide 29 mmol/L (22-30); Chloride 96 mmol/L (98-107); Estimated Creatinine Clearance 42 ml/min; Glucose 108 mg/dl (70-99); Potassium 3.6 mmol/L (3.5-5.1); Sodium 136 mmol/L (135-145); eGFR 33.03
--- NOTE | 2024-11-22 05:00 | PTCARENOTE ---
Pt with villagomez in place. Urine output from 1900 at 100mL of tea/brown colored urine, Dev Beltre aware. No bloody urine or clots noted in villagomez collection container. Rec'd order for urine culture and CBC, labs sent. Bladder scan shows
no urine retaining in bladder. Pt denies any pain or discomfort with villagomez. Pt encouraged to take sips of water and report any pain or discomfort immediately. Pt resting with call emerson in reach. Plan of care ongoing.
Creatinine increase at 2.1 from 1.7 yesterday. JUANITA Alex aware.
--- NOTE | 2024-11-22 05:08 | W.PN.UPDATE ---
Update Note
Progress Note Update
Reported by the nursing staff that the patient has tea brown color urine that not new and decrease of output. Urinalysis/ urine culture ordered.
Patient afebrile and denied any urinary symptoms.
Patient is CHF and currently on fluid restriction. Lasix on hold for abnormal creatinine level and plan to trend creatinine level.
Advised the nurse to flush the villagomez, and continue monitoring for output.
Villagomez start draining after flushing, will send another urinalysis.
[2024-11-22 05:10] LABS: Urine Amorphous Seen; Urine Bacteria Many (Negative); Urine Mucus Many; Urine Red Blood Cell >100 /HPF (0-2); Urine Squamous Cell >30 /LPF (Few); Urine Urothelial Cell >30 /LPF (FEW)
[2024-11-22 06:46] LABS: Urine Albumin 3+ (Neg - Trace); Urine Bilirubin Negative (Negative); Urine Character Cloudy (Clear); Urine Color Brown; Urine Glucose Negative (Negative); Urine Ketone Negative (Negative); Urine Leukocyte 2+ (Negative); Urine Nitrite Negative (Negative); Urine Occult Blood 4+ (Negative); Urine Specific Gravity 1.025 (<1.030); Urine Urobilinogen Negative (Neg - 1+)
--- NOTE | 2024-11-22 07:31 | W.PN.CD ---
Today's Communication / Plan
-
- AFlutter with +/- AF ablation
- resume Eliquis tonight
- Resume previous diet post ablation.
- Dilt drip can be stopped post ablation.
Impression / Plan
-
69 yo male with paroxysmal Afib/Aflutter on Eliquis, chronic HFpEF, HTN, CKD, HLD, BPH, benign brain tumor s/p resection, and is a poor historian, who presents to the ER after a fall at home. He was seen in the ER 2 days ago, diagnosed with
bronchitis and given antibiotics which he has not been taking. Concern for medication noncompliance (including Eliquis). We are consulted for rapid Afib and acute HFpEF.
Afib/flutter- rapid rates
- [id number] VASc score is at least 3, on Eliquis at home. unsure about compliance with meds.
- Continues to be in atrial flutter- appears typical in nature.
- Managed medically during last week hospitalization but again with poor rate control and end organ damage with SRIDHAR
- Will plan for AFL ablation to achieve sinus rhythm.
- On Cardizem drip for now.
- Metoprolol tartrate 12.5 mg BID started.
- Case discussed with anesthesia and is noted a high risk for intubation.
- Given typical atrial flutter, will do right sided map before considering intubation for left sided flutter.
- If left sided flutter then will do the PVI as well.
- has an appointment next week, maybe Dr. Ireland.
- Consent obtained from patient and his significant other / POA - Tabitha Mcdonald onthe phone.
HFpEF - acute on chronic.
- b/l pleural effusions on CXR, elevated proBNP.
- Continue Lasix 20 mg IV BID.
- Continue to monitor daily weights, I&O, fluid/sodium restrictions.
HTN -
-Monitor with addition of metoprolol.
CKD -
-Continue to monitor renal function.
Bronchitis - acute, seen in ER 2 days ago, given antibiotics but did not take them.
-Management as per primary team; being treated with doxycycline.
Brain tumor - benign s/p resection.
- head CT with possible postsurgical SDH.
-Management per hospitalist.
Physical Exam
Vital Signs/Labs
Vital Signs
Temp Pulse Resp BP Pulse Ox
98.1 F 80 18 119/75 96
11/22/24 07:00 11/22/24 03:19 11/22/24 07:00 11/22/24 03:19 11/22/24 07:00
11/21/24 11/22/24 11/23/24
06:59 06:59 06:59
Actual Weight 111.6 kg 112.2 kg
11/22/24 04:09
11/22/24 03:28
PT 17.0 Sec (11.4-14.6) H 11/19/24 23:51
INR 1.36 11/19/24 23:51
Magnesium 2.1 mg/dl (1.6-2.3) 11/21/24 03:32
Triglycerides 70 mg/dl (10-149) 11/21/24 03:32
LDL Cholesterol, Calc 23 mg/dl 11/21/24 03:32
VLDL Cholesterol, Calc 14 mg/dl (0-30) 11/21/24 03:32
HDL Cholesterol 38 mg/dl 11/21/24 03:32
11/20/24
00:06
Bzp-T-Kqzwvutjfmh Pept 3600
Physical Exam
Constitutional: No acute distress and Comfortable
EENT: Anicteric and Moist mucous membranes
Cardiovascular: Rhythm/rate is irregular, Pedal edema present, JVD present and Systolic murmur present
Respiratory: Respiratory effort normal and Rhonchi Present
GI: Soft, Non tender, Normal bowel sounds and Distention present
Neuro/Psych: Alert, Oriented and AO x 3
Other: Cath Site
Data Reviewed
-
Date of Service: November 22, 2024
Medical Decision Making: Reviewed Test Results, Independent Historian Assessment, Test Interpretation and Review of Case with other Provider
EKG: Tracing Personally Visualized and interpreted
Echo: Report Reviewed by me
X-Ray/CT/US/MRI/NUC/PET: Image Personally Visualized and interpreted
Medical Tests (PFT, Pathology etc): Discussed with Physician, Discussed with Nurse, Discussed with Patient and Discussed with Family
Labs: Labs Reviewed by me
Old Records: Reviewed
[2024-11-22 07:57] LABS: Urine Squamous Cell 16-20 /LPF (Few)
[2024-11-22 08:03] LABS: Urine Red Blood Cell >100 /HPF (0-2)
[2024-11-22] MEDS: VENTOLIN NEBULES 2.5 MG INH ×4 (08:25→20:41)
[2024-11-22] MEDS: LIPITOR 20 MG PO (09:03)
[2024-11-22] MEDS: LOPRESSOR 12.5 MG PO ×2 (09:03→19:28)
[2024-11-22] MEDS: VIBRAMYCIN 100 MG PO ×2 (09:03→19:28)
--- NOTE | 2024-11-22 12:09 | CM ---
Reviewed chart. Met with Mr. Nichols and his girl friend to review discharge plans. He states prior to admission he resides with his girl friend. Girlfriend states that prior to admission he was not raking his mediations and not using his walker
to ambulate. She states she would like to explore SNF/Rehab. for him. She states he was in [facility] in the past and she would like him to return there if possible [facility] is [facility] to their home. Telephone call to [facility] to make
the referral. Sent the referral. Will need to pre-cert for SNF/rehab with his insurance. Medical work-up in progress. The discharge plan is to go to SNF/Rehab.-hopefully [facility] if bed available, and approved by insurance when medically
stable.
--- NOTE | 2024-11-22 13:19 | PTCARENOTE ---
pt afib/flutter, hr in the 90s, vss. pt offers no complaints at this time. report given to lab and pt off unit for procedure.
[2024-11-22 14:13] LABS: ACT-LR - POC 247 Seconds (116-155)
--- NOTE | 2024-11-22 14:45 | ITS.CL.ABL ---
Teacher Aide - Ablation
Ablation
Procedure Report:
Atrial flutter ablation:
Mr. Hussein is a very pleasant 69 yr old gentleman with medical history significant for symptomatic paroxysmal atrial fibrillation and atrial flutter is here in the EP lab for atrial flutter ablation
Date of Procedure:
11/22/2024
Indications:
Symptomatic persistent atrial flutter
Pre-Operative Diagnosis:
Persistent atrial flutter
Post-Operative Diagnosis:
Persistent atrial flutter
Procedure Performed:
Atrial flutter ablation with cavo-tricuspid isthmus line block formation
Performing Physician:
Fly Lpoez MD
Assistants:
EP staff
Anesthesia:
See anesthesia records
Detailed Description of the Procedure:
Written informed consent was obtained from the patient after a full explanation of the risks and benefits of the procedure including the risks of sedation and anesthesia.
The patient was brought to the electrophysiology laboratory in stable condition in fasting state. Continuous electrocardiographic and hemodynamic monitoring was initiated.
The initial rhythm was atrial flutter.
The procedure site was meticulously prepared with surgical scrub and allowed to dry with no pooling. Sterile draping was applied to cover the procedure site. The image intensifier was draped with sterile bag and positioned over the patient. After
infusion of local anesthetic, vascular access was obtained under ultrasound guidance and sheaths were placed over guide wire as detailed below.
The images of the ultrasound of the femoral vessels were stored in patient chart.
Sheath and Catheter Placement:
In the right femoral vein, an 8-Cameroonian sheath was placed under ultrasound guidance for use during the ablation procedure. And mapping catheter was intermittently placed in the high right atrium, right ventricle, left atrium and left ventricle. In
the left femoral vein, a 9-Fr long sheath was placed for use during intracardiac echo procedure.
The sheaths were upgraded as needed during the case. Intracardiac catheters were positioned using direct fluoroscopic guidance.� ICE catheter was placed in RA. The following catheters / sheaths were placed
Sheaths:
��������� Agilis sheath in right femoral vein upgraded from 8Fr in right femoral vein
��������� 9Fr in left femoral vein
��������� 7Fr in right femoral vein
Catheters:
��������� The Affera Sphere 9 catheter -bidirectional D/F� - at locations of HRA, RV, LA and LV.
��������� ICE catheter -AccuNav -� at locations of RA, SVC, and RV.
��������� Bard decapolar catheter � RA and CS
Heparin was initiated after the access was obtained.
Intracardiac ECHO:
An 8-Cameroonian AcuNav intracardiac ECHO (ICE) probe was advanced through the 9-Cameroonian sheath in the left femoral vein into the right atrium under fluoroscopic and ICE ultrasound image guidance and a baseline ECHO study was performed. The left atrial
size was dilated. There was trace tricuspid regurgitation. The aortic valve was grossly normal. There was normal left ventricular size and function. There is a trace pericardial effusion. The LAUREN has baseline normal velocities. The pulmonary had
good flow identified.
During the procedure, ICE was used for monitoring of complications, guidance of trans-septal puncture, monitor the catheter position and tracking ablation lesions. No change in the pericardial space noted throughout the procedure.
Electroanatomic mapping of the right atrium:
A J-tipped guidewire was advanced through the 8-Cameroonian sheath in the right femoral vein into the superior vena cava under fluoroscopic and ICE guidance. The 8-Cameroonian sheath was exchanged for an Agilis sheath which was advanced into the superior vena
cava.
Using the Sphere 9 Affera catheter advanced through Agilis sheath into the right atrium, an electroanatomic map (EAM) of the right atrium was created using the [employer]� mapping system with [employer] software mapping system.
There was borderline HV conduction noted at baseline at 55 ms.
Ablation # 1: Typical Atrial Flutter Ablation:
The flutter was mapped and was noted concentric in the CS. The RA was mapped in atrial flutter that showed typical counter clock colon CTI dependent atrial flutter.
The CTI ablation was done using radiofrequency with Affera sphere -9 ablation, open irrigation, force-sensing bidirectional ablation catheter in the cavotricuspid isthmus from the tricuspid annulus to the IVC ridge. �
The flutter terminated into sinus rhythm with ablation.
Once the ablation catheter reach near the IVC, the ablation energy was changed to pulsefield.
��������������� -Bidirectional block was confirmed across the CTI line with differential pacing.
��������������� -Double potentials were spaced greater than 98 msec apart.
��������������� -The conduction time across the CTI line from proximal CS pacing was 150 msec.
��������������� -EAM of the right atrium was obtained with coronary sinus pacing and showed a line of block at the CTI.
��������������� -The time interval just lateral to the ablation lesions was 150 msec and the lateral wall was 132 msec
��������������� - All these maneuvers confirmed the block at the CTI line.
- Post ablation HV interval was unchanged at 55msec
Patient was observed for 15 minutes and persistent block at the CTI demonstrated.
Procedure End
ICE study was done again that showed no epicardial accumulation. No complications noted.
Following the completion of the EP study, catheters were removed. The sheaths were removed and hemostasis achieved with Figure of 8 suture and manual compression after acceptable ACT is achieved.
Atrial Pressure:
Mean RA pressure was 18mmHg
Estimated Blood loss:
<10 cc
Specimens Removed:
None.
Implants / Devices:
None
Urine output:
None
Packs / Drains/ Tubes:
None
Instrument / Sponge Count Correct:
Yes
Complications of the Procedure:
None
Condition of Patient at Time of Transfer:
Hemodynamically stable with no neurological or vascular compromise.
Summary:
��������� Successful atrial flutter ablation with cavo-tricuspid isthmus line block formation.
Figures from the Procedure:
Figure 1: The electroanatomic mapping (EAM) of the left atrium with bipolar voltage (purple indicates normal electrical activity with red as no myocardial muscle electric activity indicating a line of block or scar.
--- NOTE | 2024-11-22 15:53 | PTCARENOTE ---
received pt post ablation, right groin is CDI, figure [address] pt educated on importance of keeping head flat. pt is sr, hr 90s, vss. pt offers no complaints at this time. pt educated on plan of care. call emerson within reach.
--- NOTE | 2024-11-22 18:22 | W.PN.HOSP.TC ---
Today's Communication/Plan
-
recheck labs tomorrow with Lasix and ACEI on hold.
May need IVF
Assessment / Plan
Assessment / Plan
HPI: 69-year-old male with a complex past medical history and unfortunately is unable to provide much history. Was present with the patient has a history of atrial fibrillation on anticoagulation, he has a preserved EF, he has a history of benign
brain tumor status post resection, he also has a history of thyroid nodules and lung nodule status post radiation, hypertension, hyperlipidemia and BPH who presents to the emergency department following a fall at home where he was called twice
before agreeing to come along with EMS.
Patient was seen in the emergency department approximately 2 days ago with a cough that sounded wet. Caregiver thought the patient might have some volume overload. At the time he was diagnosed with bronchitis and started on Augmentin and
doxycycline. Patient apparently was noncompliant. He does not take his Eliquis is not as a take the antibiotics that were prescribed including the Augmentin.
Pt just completed Atrial Flutter ablation
#Rapid atrial fibrillation, known
Patient not compliant with taking his Cardizem or Eliquis
as per cardio, okay to resume Eliquis
#Acute on chronic heart failure with a preserved ejection fraction
Hold IV Lasix secondary to BUN/creatinine
Trend creatinine, trend daily weights
#Acute kidney injury
Creatinine 1.3-->1.6-->1.7-->2.1
Hold IV Lasix, hold lisinopril
Trend creatinine
#Acute urinary retention requiring Vale insertion on 11/20
Maintain Vale for 3 days, started on Flomax
Reports he is removing his bowels
#Essential hypertension
Hold lisinopril 20 mg daily due to SRIDHAR
#Medical noncompliance
#Fall
Patient lives with his girlfriend, who would like him placed
PT/OT
#Tremors
Possibly intentional tremor, monitor, consider beta-carlos
#Recent bronchitis
Finish course of doxycycline
#Cognitive impairment suspicious for dementia
Patient thinks it is 2004
TSH and B12 normal
Recommend neuropsychiatric testing outpatient
#Hyperlipidemia
Continue statin
#Obesity due to excess calories
Affects all aspects of care
DVT prophylaxis�Eliquis
Full code
Anticipated Discharge: > 48 hours
Subjective/Interval History
-
Date of Service: November 22, 2024
Pt just back from atrial flutter ablation
Objective Data
-
Vital Signs:
Vital Signs
Temp Pulse Resp BP Pulse Ox
97.9 F 98 18 111/93 97
11/22/24 11:15 11/22/24 17:00 11/22/24 11:15 11/22/24 17:00 11/22/24 11:15
I&O
11/21/24 11/22/24 11/23/24
06:59 06:59 06:59
Intake Total 480 / 480 480 / 480
Output Total 1275 / 1275 590 / 590 300 / 300
Balance -1275 / -1275 -110 / -110 180 / 180
Review of Systems
-
History Source: Patient and Coordinated Provider
Constitutional: Denies Fever
EENT: Reports No Symptoms Reported
Respiratory: Reports No Symptoms
Cardiac: Reports No Symptoms
Physical Exam
-
General: Well Developed, Well Nourished and No Apparent Distress
Respiratory: Clear to Auscultation
Cardiac: Regular Rhythm
GI: Soft, Nontender and Nondistended
Musculoskeletal: No Clubbing, No Cyanosis and No Edema
Neuro: Awake and Alert
--- NOTE | 2024-11-22 18:43 | PTCARENOTE ---
pt is sr/st, vss. pt right groin cdi. figure 8 removed. pt tolerated well. pt educated on plan of care and pt verbalized understanding. call emerson within reach.
[2024-11-22 19:42] LABS: Hepatitis C Antibody Reactive (Negative)
--- NOTE | 2024-11-22 20:22 | PTCARENOTE ---
Received patient at change of shift. Patient resting in bed. Awoke to soft tactile touch. Oriented to name and time, not place. Discussed where the patient was and why. Verbalized understanding. Right femoral site clean, dry, and intact. No
swelling, ecchymosis or hematoma present. Vale intact. Bed alarm on. BP 91/57, ST w/ PVCs 100s, 96% on room air. Discussed ambulation time, and care for evening. Patient verbalized understanding. Call emerson within reach.
[2024-11-22] MEDS: FLOMAX 0.4 MG PO (20:58)
[2024-11-22] MEDS: ELIQUIS 5 MG PO (20:58)
[2024-11-23] VITALS (13 sets, daily range): BP systolic 92–139; BP diastolic 49–80; PULSE 98; O2SAT 98; BMI 33.8
[2024-11-23 04:46] LABS: Hematocrit 39.7 % (39.0-52.0); Mean Corp Hgb Conc. 30.2 g/dL (33.0-37.0); Mean Corpuscular Hgb 24.6 pg (27.0-31.0); Mean Corpuscular Volume 81.4 fL (80.0-94.0); Mean Platelet Volume 12.4 fL (7.4-10.4); Platelet Count 125 10^3/uL (130-400); Red Blood Cell Count 4.88 10^6/uL (4.70-6.10); Red Cell Dist. Width 13.2 % (11.5-14.5); White Blood Cell Count 6.4 10^3/uL (4.8-10.8)
[2024-11-23 05:14] LABS: Blood Urea Nitrogen 55 mg/dl (9-20); Carbon Dioxide 27 mmol/L (22-30); Chloride 99 mmol/L (98-107); Estimated Creatinine Clearance 52 ml/min; Glucose 140 mg/dl (70-99); Magnesium 2.2 mg/dl (1.6-2.3); Potassium 4.8 mmol/L (3.5-5.1); Sodium 138 mmol/L (135-145); eGFR 42.57
[2024-11-23] MEDS: VENTOLIN NEBULES 2.5 MG INH ×4 (07:12→20:27)
[2024-11-23] MEDS: LIPITOR 20 MG PO (08:58)
[2024-11-23] MEDS: LOPRESSOR 12.5 MG PO (08:58)
[2024-11-23] MEDS: VIBRAMYCIN 100 MG PO ×2 (08:58→19:45)
[2024-11-23] MEDS: LASIX 40 MG IV ×2 (08:58→17:11)
[2024-11-23] MEDS: ELIQUIS 5 MG PO ×2 (08:59→19:44)
[2024-11-23] MEDS: CARDIZEM CD 120 MG PO (08:59)
--- NOTE | 2024-11-23 10:03 | W.PN.CD ---
Today's Communication / Plan
-
- Hold Lisinopril, Metoprolol
- Diuresis as tolerated.
- Sinus rhythm now.
- Continue Diltiazem 120 mg QD and Eliquis 5 mg BID.
Impression / Plan
-
69 yo male with paroxysmal Afib/Aflutter on Eliquis, chronic HFpEF, HTN, CKD, HLD, BPH, benign brain tumor s/p resection, and is a poor historian, who presents to the ER after a fall at home. He was seen in the ER 2 days ago, diagnosed with
bronchitis and given antibiotics which he has not been taking. Concern for medication noncompliance (including Eliquis). We are consulted for rapid Afib and acute HFpEF.
Afib/flutter- rapid rates
- s/p AFL ablation with CTI
- Anesthesia was not comfortable for intubation - patient is too sick and right sided ablation done under moderate sedation.
- Now in sinus rhythm. Feeling better.
- [id number] VASc score is at least 3, on Eliquis at home. unsure about compliance with meds.
- [facility] - needs compliance with medications
- LAUREN was seen with ICE on the table and no clot noted.
- has an appointment next week, maybe Dr. Ireland.
HFpEF - acute on chronic.
- Elevated right atrial pressure to 19 mmHg.
- b/l pleural effusions on CXR, elevated proBNP.
- Increase Lasix to 40 mg IV BID.
- Continue to monitor daily weights, I&O, fluid/sodium restrictions.
- Borderline BP - hold lisinopril. Discontinue Metoprolol for now to improve the BP.
- Needs diuresis
HTN -
-Monitor with addition of metoprolol.
CKD -
-Continue to monitor renal function.
Bronchitis - acute, seen in [facility] ER 2 days ago, given antibiotics but did not take them.
-Management as per primary team; being treated with doxycycline.
Brain tumor - benign s/p resection.
- head CT with possible postsurgical SDH.
-Management per hospitalist.
Physical Exam
Vital Signs/Labs
Vital Signs
Temp Pulse Resp BP Pulse Ox
97.7 F 93 18 103/69 97
11/23/24 08:03 11/23/24 08:00 11/23/24 08:03 11/23/24 08:00 11/23/24 08:03
11/22/24 11/23/24 11/24/24
06:59 06:59 06:59
Actual Weight 112.2 kg 112.9 kg
11/23/24 04:16
11/23/24 04:16
PT 17.0 Sec (11.4-14.6) H 11/19/24 23:51
INR 1.36 11/19/24 23:51
Magnesium 2.2 mg/dl (1.6-2.3) 11/23/24 04:16
Triglycerides 70 mg/dl (10-149) 11/21/24 03:32
LDL Cholesterol, Calc 23 mg/dl 11/21/24 03:32
VLDL Cholesterol, Calc 14 mg/dl (0-30) 11/21/24 03:32
HDL Cholesterol 38 mg/dl 11/21/24 03:32
11/20/24
00:06
Alk-A-Jbajxemdqis Pept 3600
Physical Exam
Constitutional: No acute distress and Comfortable
EENT: Anicteric and Moist mucous membranes
Cardiovascular: Rhythm & rate is regular, Pedal edema present, JVD present and Systolic murmur present
Respiratory: Respiratory effort normal, Crackles Absent and Rhonchi Absent
GI: Soft, Distention absent and Normal bowel sounds
Neuro/Psych: Alert, Oriented, AO x 3 and Tremors
Data Reviewed
-
Date of Service: November 23, 2024
Medical Decision Making: Reviewed Test Results, Test Interpretation and Review of Case with other Provider
EKG: Tracing Personally Visualized and interpreted
Echo: Report Reviewed by me
Medical Tests (PFT, Pathology etc): Discussed with Patient
Labs: Labs Reviewed by me and Labs Ordered by me
--- NOTE | 2024-11-23 12:55 | CM ---
Reviewed chart. Telephone call to [facility] Admissions to check on status of referral . Left message. He will need pre-cert with his insurance. Telephone call to [facility] to review information needed for pre-cert. Will need to fax
clinical to ([phone]). Medical work-up in progress. The discharge plan is to go to SNF/Rehab- hopefully [facility] if approved for admission and approved by insurance when medically stable.
--- NOTE | 2024-11-23 19:26 | W.PN.HOSP.TC ---
Today's Communication/Plan
-
continue current Tx
Assessment / Plan
Assessment / Plan
HPI: 69-year-old male with a complex past medical history and unfortunately is unable to provide much history. Was present with the patient has a history of atrial fibrillation on anticoagulation, he has a preserved EF, he has a history of benign
brain tumor status post resection, he also has a history of thyroid nodules and lung nodule status post radiation, hypertension, hyperlipidemia and BPH who presents to the emergency department following a fall at home where he was called twice
before agreeing to come along with EMS.
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 Caregiver thought the patient might have some volume overload. At the time he was diagnosed with bronchitis and started on Augmentin and
doxycycline. Patient apparently was noncompliant. He does not take his Eliquis is not as a take the antibiotics that were prescribed including the Augmentin.
Pt completed Atrial Flutter ablation 11/22/24
#Rapid atrial fibrillation, known
Patient not compliant with taking his Cardizem or Eliquis
as per cardio, okay to resume Eliquis
#Acute on chronic heart failure with a preserved ejection fraction
Hold IV Lasix secondary to BUN/creatinine
Trend creatinine, trend daily weights
#Acute kidney injury
Creatinine 1.3-->1.6-->1.7-->2.1
Hold IV Lasix, hold lisinopril
Trend creatinine
#Acute urinary retention requiring Vale insertion on 11/20
Maintain Vael for 3 days, started on Flomax
Reports he is removing his bowels
#Essential hypertension
Hold lisinopril 20 mg daily due to SRIDHAR
#Medical noncompliance
#Fall
Patient lives with his girlfriend, who would like him placed
PT/OT
#Tremors
Possibly intentional tremor, monitor, consider beta-carlos
#Recent bronchitis
Finish course of doxycycline
#Cognitive impairment suspicious for dementia
Patient thinks it is 2004
TSH and B12 normal
Recommend neuropsychiatric testing outpatient
#Hyperlipidemia
Continue statin
#Obesity due to excess calories
Affects all aspects of care
DVT prophylaxis�Eliquis
Full code
Anticipated Discharge: > 48 hours
Subjective/Interval History
-
Date of Service: November 23, 2024
Much more awake and alert
Objective Data
-
Vital Signs:
Vital Signs
Temp Pulse Resp BP Pulse Ox
98.2 F 79 18 95/61 96
11/23/24 15:38 11/23/24 18:00 11/23/24 16:25 11/23/24 15:36 11/23/24 16:25
I&O
11/22/24 11/23/24 11/24/24
06:59 06:59 06:59
Intake Total 480 / 480 480 / 480 1440 / 1440
Output Total 590 / 590 650 / 650 825 / 825
Balance -110 / -110 -170 / -170 615 / 615
Review of Systems
-
History Source: Patient and Coordinated Provider
Constitutional: Denies Fever
EENT: Reports No Symptoms Reported
Respiratory: Reports No Symptoms
Cardiac: Reports No Symptoms
Physical Exam
-
General: Well Developed, Well Nourished and No Apparent Distress
Respiratory: Clear to Auscultation
Cardiac: Regular Rhythm
GI: Soft, Nontender and Nondistended
Musculoskeletal: No Clubbing, No Cyanosis and No Edema
Neuro: Awake and Alert
--- NOTE | 2024-11-23 20:15 | PTCARENOTE ---
Pt rec'd sitting in recliner chair. Harsh non productive cough noted. lungs diminished throughout. Sinus on telemetry. Right groin drsg dry and intact.
[2024-11-23] MEDS: FLOMAX 0.4 MG PO (21:24)
--- NOTE | 2024-11-23 22:37 | PTCARENOTE ---
Pt assisted back to bed, gait unsteady, shaky even with walker. Resting on his side at present. no c/o pain. call emerson within reach.
[2024-11-24] VITALS (8 sets, daily range): BP systolic 79–132; BP diastolic 62–88; BMI 33.9
[2024-11-24] MEDS: CARDIZEM CD 120 MG PO (08:30)
[2024-11-24] MEDS: LIPITOR 20 MG PO (08:30)
[2024-11-24] MEDS: ELIQUIS 5 MG PO ×2 (08:30→21:03)
[2024-11-24] MEDS: LASIX 40 MG IV ×2 (08:30→16:22)
[2024-11-24] MEDS: VIBRAMYCIN 100 MG PO ×2 (08:30→21:03)
--- NOTE | 2024-11-24 09:46 | W.PN.CD ---
Today's Communication / Plan
-
Now that he is in sinus will proceed with echo
Likely move to PO Lasix tomorrow
Review echo results and adjust GDMT over time as BP/Cr allow, further optimization can be pursued as outpatient
Impression / Plan
-
69 yo male with paroxysmal Afib/Aflutter on Eliquis, chronic HFpEF, HTN, CKD, HLD, BPH, benign brain tumor s/p resection, and is a poor historian, who presents to the ER after a fall at home. He was seen in the ER 2 days ago, diagnosed with
bronchitis and given antibiotics which he has not been taking. Concern for medication noncompliance (including Eliquis). We are consulted for rapid Afib and acute HFpEF.
Typical atrial flutter
- s/p typical atrial flutter ablation 11/22/2024
- Too sick for PVI
- [id number] VASc score is at least 3 (HF, age1, HTN), on Eliquis
- has an appointment next week, maybe Dr. Ireland.
HFpEF - acute on chronic.
- Elevated right atrial pressure to 19 mmHg.
- b/l pleural effusions on CXR, elevated proBNP.
- Increased Lasix to 40 mg IV BID.
- Continue to monitor daily weights, I&O, fluid/sodium restrictions.
- Borderline BP - lisinopril is on hold and his metoprolol was stopped for now to improve the BP.
- Needs diuresis
- Echo ordered for today 11/24/2024 now that he is in sinus
HTN, monitor with addition of metoprolol.
CKD, Continue to monitor renal function.
Bronchitis - acute, seen in [facility] ER 2 days ago, given antibiotics but did not take them.
-Management as per primary team; being treated with doxycycline.
Hx of brain tumor - benign s/p resection.
- head CT with possible postsurgical SDH.
-Management per hospitalist.
Subjective:
Feels better.
Physical Exam
Vital Signs/Labs
Vital Signs
Temp Pulse Resp BP Pulse Ox
98.1 F 80 16 93/63 97
11/24/24 06:46 11/24/24 08:01 11/24/24 08:01 11/24/24 04:40 11/24/24 08:01
11/23/24 11/24/24 11/25/24
06:59 06:59 06:59
Actual Weight 113.3 kg
11/23/24 04:16
11/23/24 04:16
PT 17.0 Sec (11.4-14.6) H 11/19/24 23:51
INR 1.36 11/19/24 23:51
Magnesium 2.2 mg/dl (1.6-2.3) 11/23/24 04:16
Triglycerides 70 mg/dl (10-149) 11/21/24 03:32
LDL Cholesterol, Calc 23 mg/dl 11/21/24 03:32
VLDL Cholesterol, Calc 14 mg/dl (0-30) 11/21/24 03:32
HDL Cholesterol 38 mg/dl 11/21/24 03:32
11/20/24
00:06
Gym-I-Mabdyagzzgk Pept 3600
Physical Exam
Constitutional: No acute distress
EENT: Anicteric
Cardiovascular: Rhythm & rate is regular and Pedal edema is absent
Respiratory: Respiratory effort normal and Crackles Present (at bases)
GI: Soft and Distention absent
Neuro/Psych: Alert
Data Reviewed
-
Date of Service: November 24, 2024
--- NOTE | 2024-11-24 10:15 | PTCARENOTE ---
Patient awake and alert sitting on side of bed forgetful, upper extremity tremors, speech slightly garbled. NSR BBB, trace ankle edema. Vale to gravity cloudy yellow urine. Bed alarm audible, hx of falls
--- NOTE | 2024-11-24 10:24 | W.PN.UPDATE ---
Update Note
Progress Note Update
I spoke with patient's contact and his knitting demonstrator is Dr. Castrejon ([facility]). They were unable to make a follow-up appointment within the next few weeks over the phone, but will call to schedule this.
--- NOTE | 2024-11-24 12:45 | CM ---
Reviewed chart. Telephone call to [facility] to check on bed availability. [facility] states their Liaison Maira will be in to see him today to see if he will sign the paperwork for Medical assistance detention care application.
If he signs the paperwork, then the maybe able to accept him. Faxed clinical information to [facility] to start the pre-cert process for SNF/Rehab. Met with to review with him. Medical work-up in progress. The discharge plan is
to SNF if approved by his insurance and bed available when medically stable.
--- NOTE | 2024-11-24 13:57 | PTCARENOTE ---
patient sent to for his ECHO on a stretcher
--- NOTE | 2024-11-24 14:32 | CARDSERVLU ---
Echocardiogram with [facility]ason completed after protocol screening completed. Allergies verified.
Patent IV site: __Left arm 20 G PC___
IV site flushed with 0.9% NaCl pre and post administration.
Diluted bolus method utilized to enhance visualization of ventricular goldberg.
Total volume given: ___3_ mL
Patient tolerated all procedures well without complications.
No change in status.
--- NOTE | 2024-11-24 18:25 | W.PN.HOSP.TC ---
Today's Communication/Plan
-
diuretic as per Cardio
follow labs
Assessment / Plan
Assessment / Plan
HPI: 69-year-old male with a complex past medical history and unfortunately is unable to provide much history. Was present with the patient has a history of atrial fibrillation on anticoagulation, he has a preserved EF, he has a history of benign
brain tumor status post resection, he also has a history of thyroid nodules and lung nodule status post radiation, hypertension, hyperlipidemia and BPH who presents to the emergency department following a fall at home where he was called twice
before agreeing to come along with EMS.
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 Caregiver thought the patient might have some volume overload. At the time he was diagnosed with bronchitis and started on Augmentin and
doxycycline. Patient apparently was noncompliant. He does not take his Eliquis is not as a take the antibiotics that were prescribed including the Augmentin.
Pt completed Atrial Flutter ablation 11/22/24
#Rapid atrial fibrillation, known
Patient not compliant with taking his Cardizem or Eliquis
as per cardio, okay to resume Eliquis
#Acute on chronic heart failure with a preserved ejection fraction
Hold IV Lasix secondary to BUN/creatinine
Trend creatinine, trend daily weights
#Acute kidney injury
Creatinine 1.3-->1.6-->1.7-->2.1-->1.7
Resumed IV Lasix, holding lisinopril
Trend creatinine
#Acute urinary retention requiring Vale insertion on 11/20
Maintain Vale for 3 days, started on Flomax
Reports he is removing his bowels
#Essential hypertension
Hold lisinopril 20 mg daily due to SRIDHAR
#Medical noncompliance
#Fall
Patient lives with his girlfriend, who would like him placed
PT/OT
#Tremors
Possibly intentional tremor, monitor, consider beta-carlos
#Recent bronchitis
Finish course of doxycycline
#Cognitive impairment suspicious for dementia
Patient thinks it is 2004
TSH and B12 normal
Recommend neuropsychiatric testing outpatient
#Hyperlipidemia
Continue statin
#Obesity due to excess calories
Affects all aspects of care
DVT prophylaxis�Eliquis
Full code
Anticipated Discharge: 24 - 48 hours
Subjective/Interval History
-
Date of Service: November 24, 2024
Awake, alert, sitting in chair
Objective Data
-
Vital Signs:
Vital Signs
Temp Pulse Resp BP Pulse Ox
98.1 F 84 20 122/71 99
11/24/24 15:06 11/24/24 16:26 11/24/24 15:06 11/24/24 16:26 11/24/24 15:06
I&O
11/23/24 11/24/24 11/25/24
06:59 06:59 06:59
Intake Total 480 / 480 1680 / 1680
Output Total 650 / 650 1425 / 1425 1100 / 1100
Balance -170 / -170 255 / 255 -1100 / -1100
Review of Systems
-
History Source: Patient and Coordinated Provider
Constitutional: Denies Fever
EENT: Reports No Symptoms Reported
Respiratory: Reports No Symptoms
Cardiac: Reports No Symptoms
Physical Exam
-
General: Well Developed, Well Nourished and No Apparent Distress
Respiratory: Clear to Auscultation
Cardiac: Regular Rhythm
GI: Soft, Nontender and Nondistended
Musculoskeletal: No Clubbing, No Cyanosis and No Edema
Neuro: Awake and Alert
[2024-11-24] MEDS: FLOMAX 0.4 MG PO (21:03)
[2024-11-25] VITALS (11 sets, daily range): BP systolic 102–140; BP diastolic 60–89; PULSE 88–99; O2SAT 98; BMI 33.6
--- NOTE | 2024-11-25 00:36 | PTCARENOTE ---
Pt oob in recliner chair at change of shift. Back to bed with assist of 1 and walker at HS following partial bath in bathroom. Passed moderate soft stool. Sinus on telemetry. back in bed at present with bed alarm activated. call emerson within reach.
[2024-11-25 04:40] LABS: Blood Urea Nitrogen 49 mg/dl (9-20); Calcium 8.7 mg/dl (8.4-10.2); Carbon Dioxide 34 mmol/L (22-30); Chloride 95 mmol/L (98-107); Estimated Creatinine Clearance 67 ml/min; Glucose 99 mg/dl (70-99); Potassium 4.2 mmol/L (3.5-5.1); Sodium 136 mmol/L (135-145); eGFR 58.73
[2024-11-25] MEDS: LIPITOR 20 MG PO (07:56)
[2024-11-25] MEDS: ELIQUIS 5 MG PO ×2 (07:56→21:13)
[2024-11-25] MEDS: CARDIZEM CD 120 MG PO (07:56)
[2024-11-25] MEDS: LASIX 40 MG IV ×2 (07:56→15:45)
[2024-11-25] MEDS: VIBRAMYCIN 100 MG PO ×2 (07:56→21:13)
--- NOTE | 2024-11-25 09:14 | PTCARENOTE ---
Assumed care. Patient AO x3, garbled speech, intention tremors upper extremities. SR BBB. Occasional cough, lungs decreased. Folet removed at 0330, voided 75 cc of cloudy yellow urine in the urinal. Sitting on side of bed, walked to the bathroom and
back with rolling walker. Bed and chair alarms audible, does sometimes forget to call for assistance. Breakfast ordered, in the chair and call emerson in reach
--- NOTE | 2024-11-25 10:08 | W.PN.CD ---
Today's Communication / Plan
-
- D/c Dilt
- Start metoprolol
- Reduce Lisinopril
- Continue diuresis.
Impression / Plan
-
69 yo male with paroxysmal Afib/Aflutter on Eliquis, chronic HFpEF, HTN, CKD, HLD, BPH, benign brain tumor s/p resection, and is a poor historian, who presents to the ER after a fall at home. He was seen in the ER 2 days ago, diagnosed with
bronchitis and given antibiotics which he has not been taking. Concern for medication noncompliance (including Eliquis). We are consulted for rapid Afib and acute HFpEF.
Typical atrial flutter
- s/p typical atrial flutter ablation 11/22/2024
- has hx of PAF - followed by his doll surgeon is Dr. Castrejon ([facility])
- Too sick for PVI
- [id number] VASc score is at least 3 (HF, age1, HTN), on Eliquis
- Needs follow up appointment with Dr. Castrejon. Pt will call to get early appt. Called and informed with cardiology office regarding updates about the patient.
HFmEF - acute on chronic.
- ECHO 11/24/24: LVEF 45%. global hypokinesis. (Sinus rhythm with better rates)
- Elevated right atrial pressure to 19 mmHg.
- b/l pleural effusions on CXR, elevated proBNP.
- Continue Lasix to 40 mg IV BID.
- Continue to monitor daily weights, I&O, fluid/sodium restrictions.
- Will discontinue Diltiazem and start Metoporlol 12.5 mg BID. Decrease lisinopril to 5 mg QD.
- Cr is improving with diuresis. With SRIDHAR, will hold starting of Spironolactone for now.
- Needs diuresis
- Echo ordered for today 11/24/2024 now that he is in sinus
HTN,
- Labile BP
- Restarting metoprolol. reduce Lisinopril
- Continue diuresis.
CKD,
- Acute on chornic
- Continue to monitor renal function.
Bronchitis - acute, seen in ER 2 days ago, given antibiotics but did not take them.
-Management as per primary team; being treated with doxycycline.
Hx of brain tumor - benign s/p resection.
- head CT with possible postsurgical SDH.
-Management per hospitalist.
Subjective:
Feels better.
Physical Exam
Vital Signs/Labs
Vital Signs
Temp Pulse Resp BP Pulse Ox
98.3 F 84 20 132/79 97
11/25/24 06:49 11/25/24 06:48 11/25/24 06:49 11/25/24 06:48 11/25/24 06:49
11/24/24 11/25/24 11/26/24
06:59 06:59 06:59
Actual Weight 113.3 kg 112.2 kg
11/23/24 04:16
11/25/24 03:48
PT 17.0 Sec (11.4-14.6) H 11/19/24 23:51
INR 1.36 11/19/24 23:51
Magnesium 2.2 mg/dl (1.6-2.3) 11/23/24 04:16
Triglycerides 70 mg/dl (10-149) 11/21/24 03:32
LDL Cholesterol, Calc 23 mg/dl 11/21/24 03:32
VLDL Cholesterol, Calc 14 mg/dl (0-30) 11/21/24 03:32
HDL Cholesterol 38 mg/dl 11/21/24 03:32
11/20/24
00:06
Qba-S-Vbduqmntqys Pept 3600
Physical Exam
Constitutional: No acute distress and Comfortable
EENT: Anicteric and Moist mucous membranes
Cardiovascular: Rhythm & rate is regular, Pedal edema present, JVD present and Systolic murmur present
Respiratory: Respiratory effort normal, Wheeze Absent and Crackles Absent
GI: Soft, Non tender and Normal bowel sounds
Neuro/Psych: Alert, Oriented, AO x 3 and Motor deficits absent
Other: Cath Site
Data Reviewed
-
Date of Service: November 25, 2024
Medical Decision Making: Reviewed Test Results, Independent Historian Assessment, Test Interpretation and Review of Case with other Provider
EKG: Tracing Personally Visualized and interpreted
Echo: Report Reviewed by me
Labs: Labs Reviewed by me
Old Records: Reviewed
--- NOTE | 2024-11-25 10:35 | PTCARENOTE ---
Voided 800 cc of yellow urine in the urinal
--- NOTE | 2024-11-25 12:54 | CM ---
Reviewed chart. Received telephone call from [facility]mission to check on SNF/ Auth. Telephone call to [facility] to check on status. Still pending. Medial work-up in progress. The discharge plan is to go to [facility] SNF if
approve by insurance and bed available when medically stable.
--- NOTE | 2024-11-25 17:23 | W.PN.HOSP.TC ---
Today's Communication/Plan
-
potential dc tomorrow
Assessment / Plan
Assessment / Plan
HPI: 69-year-old male with a complex past medical history and unfortunately is unable to provide much history. Was present with the patient has a history of atrial fibrillation on anticoagulation, he has a preserved EF, he has a history of benign
brain tumor status post resection, he also has a history of thyroid nodules and lung nodule status post radiation, hypertension, hyperlipidemia and BPH who presents to the emergency department following a fall at home where he was called twice
before agreeing to come along with EMS.
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 Caregiver thought the patient might have some volume overload. At the time he was diagnosed with bronchitis and started on Augmentin and
doxycycline. Patient apparently was noncompliant. He does not take his Eliquis is not as a take the antibiotics that were prescribed including the Augmentin.
Pt completed Atrial Flutter ablation 11/22/24
#Rapid atrial fibrillation, known
Patient not compliant with taking his Cardizem or Eliquis
as per cardio, okay to resume Eliquis
Now in NSR post ablation
#Acute on chronic heart failure with a preserved ejection fraction
Trend creatinine, trend daily weights
#Acute kidney injury
Creatinine 1.3-->1.6-->1.7-->2.1-->1.7-->1.3
Resumed IV Lasix, holding lisinopril
Trend creatinine
#Acute urinary retention requiring Vale insertion on 11/20
Maintained Vale for 3 days, started on Flomax
Reports he is removing his bowels. Vale removed
#Essential hypertension
Hold lisinopril 20 mg daily due to SRIDHAR
reviewed situation with Dr. Lopez
Lisinopril is now 5 mg daily and will resume
will change Lasix to 40 mg po bid
#Medical noncompliance
#Fall
Patient lives with his girlfriend, who would like him placed
PT/OT
As per CM, should have arrangements completed for dc tomorrow
#Tremors
Possibly intentional tremor, monitor, consider beta-carlos
#Recent bronchitis
Finish course of doxycycline, will complete tonight
#Cognitive impairment suspicious for dementia
Patient thinks it is 2004
TSH and B12 normal
Recommend neuropsychiatric testing outpatient
#Hyperlipidemia
Continue statin
#Obesity due to excess calories
Affects all aspects of care
DVT prophylaxis�Eliquis
Full code
Anticipated Discharge: 24 - 48 hours
Subjective/Interval History
-
Date of Service: November 25, 2024
Appears comfortable. Sitting in chair watching TV
Objective Data
-
Vital Signs:
Vital Signs
Temp Pulse Resp BP Pulse Ox
98.2 F 89 20 111/70 100
11/25/24 14:38 11/25/24 14:38 11/25/24 14:38 11/25/24 14:38 11/25/24 14:38
I&O
11/24/24 11/25/24 11/26/24
06:59 06:59 06:59
Intake Total 1680 / 1680 600 / 600 600 / 600
Output Total 1425 / 1425 2450 / 2450 1250 / 1250
Balance 255 / 255 -1850 / -1850 -650 / -650
Review of Systems
-
History Source: Patient and Coordinated Provider
Constitutional: Denies Fever
EENT: Reports No Symptoms Reported
Respiratory: Reports No Symptoms
Cardiac: Reports No Symptoms
Physical Exam
-
General: Well Developed, Well Nourished, No Apparent Distress and Comfortable
HEENT: Normocephalic, Atraumatic and Moist Mucous Membranes
Respiratory: Clear to Auscultation
Cardiac: Regular Rhythm and S1/S2
GI: Soft, Nontender and Nondistended
Musculoskeletal: No Clubbing, No Cyanosis and No Edema
[2024-11-25] MEDS: TOPROL XL 12.5 MG PO (21:13)
[2024-11-25] MEDS: FLOMAX 0.4 MG PO (23:05)
--- NOTE | 2024-11-26 01:45 | PTCARENOTE ---
Rec'd pt at change shift. AAO*3, VSS, and SR on TELE monitor. Pt denies any pain or discomfort and updated on plan of care. Pt resting with call emerson in reach and plan of care ongoing. See pt flowchart and MAR for full pt assessment and care.
[2024-11-26 03:55] VITALS: BP 112/64
--- NOTE | 2024-11-26 04:24 | PTCARENOTE ---
Bed alarm triggered. Pt found sitting on side of the bed and IV was removed and found on top of the pt's gown. Attempted to reposition pt back into supine position in bed. Pt refused. Attempted to get pt into chair however pt refused. Pt raised
voice stating 'leave me alone, I just want to be left alone.' Pt supervised by this RN and continued to sit at bedside under RN supervision. Pt watched television at side of bed for 15 minutes. Vital signs then obtained. Bedding and gown
changed. Pt agreed to lay supine in bed and bed alarm was activated.
Rn attempted to place new IV and obtain morning blood work, however pt explained 'that's not important wait for the doctor.' RN explained need for IV and morning blood work but pt insisted that blood work not be done.
Pt now resting in bed with bed alarm active and call emerson in reach. Plan of care ongoing.
[2024-11-26 07:10] VITALS: BP 106/67
--- NOTE | 2024-11-26 07:44 | W.PN.CD ---
Today's Communication / Plan
-
- On Oral diuretics now
- Stable regimen.
- Follow up with local cardiology in 1-2 weeks.
- continue Metoprolol, lisinopril and Eliquis.
- Stable for discharge from cardiac stand point.
Impression / Plan
-
69 yo male with paroxysmal Afib/Aflutter on Eliquis, chronic HFpEF, HTN, CKD, HLD, BPH, benign brain tumor s/p resection, and is a poor historian, who presents to the ER after a fall at home. He was seen in the ER 2 days ago, diagnosed with
bronchitis and given antibiotics which he has not been taking. Concern for medication noncompliance (including Eliquis). We are consulted for rapid Afib and acute HFpEF.
Typical atrial flutter
- s/p typical atrial flutter ablation 11/22/2024
- has hx of PAF - followed by his travel guide is Dr. Castrejon ([facility])
- Too sick for PVI
- [id number] VASc score is at least 3 (HF, age1, HTN), on Eliquis
- Needs follow up appointment with Dr. Castrejon. Pt will call to get early appt. Called and informed with cardiology office regarding updates about the patient.
HFmEF - acute on chronic.
- ECHO 11/24/24: LVEF 45%. global hypokinesis. (Sinus rhythm with better rates)
- Elevated right atrial pressure to 19 mmHg.
- b/l pleural effusions on CXR, elevated proBNP.
- now on Lasix to 40 mg PO BID.
- Continue to monitor daily weights, I&O, fluid/sodium restrictions.
- Discontinued Diltiazem and started Metoprolol 12.5 mg BID. Decrease lisinopril to 5 mg QD.
- Cr is improving with diuresis. With SRIDHAR, will hold starting of Spironolactone for now. start as outpatient.
- Needs diuresis
- Echo on 11/24/2024 - global mild hypokinesis.
HTN,
- Labile BP
- Restarting metoprolol. reduce Lisinopril
- Continue diuresis.
CKD,
- Acute on chronic
- Continue to monitor renal function.
Bronchitis - acute, seen in ER prior to admission, given antibiotics but did not take them.
-Management as per primary team; being treated with doxycycline.
Hx of brain tumor - benign s/p resection.
- head CT with possible postsurgical SDH.
-Management per hospitalist.
Subjective:
Feels better.
Physical Exam
Vital Signs/Labs
Vital Signs
Temp Pulse Resp BP Pulse Ox
98.2 F 83 18 106/67 99
11/26/24 07:12 11/26/24 07:10 11/26/24 07:12 11/26/24 07:10 11/26/24 07:12
11/25/24 11/26/24 11/27/24
06:59 06:59 06:59
Actual Weight 112.2 kg
11/23/24 04:16
PT 17.0 Sec (11.4-14.6) H 11/19/24 23:51
INR 1.36 11/19/24 23:51
Magnesium 2.2 mg/dl (1.6-2.3) 11/23/24 04:16
Triglycerides 70 mg/dl (10-149) 11/21/24 03:32
LDL Cholesterol, Calc 23 mg/dl 11/21/24 03:32
VLDL Cholesterol, Calc 14 mg/dl (0-30) 11/21/24 03:32
HDL Cholesterol 38 mg/dl 11/21/24 03:32
11/20/24
00:06
Pro-Z-Rmlmtcwyurf Pept 3600
Physical Exam
Constitutional: No acute distress and Comfortable
EENT: Anicteric and Moist mucous membranes
Cardiovascular: Rhythm & rate is regular, Pedal edema is absent, JVD present and Systolic murmur present
Respiratory: Respiratory effort normal, Wheeze Absent and Crackles Absent
GI: Soft, Non tender and Normal bowel sounds
Neuro/Psych: Alert and Oriented
Other: Skin
Data Reviewed
-
Date of Service: November 26, 2024
Medical Decision Making: Reviewed Test Results, Test Interpretation and Review of Case with other Provider
EKG: Tracing Personally Visualized and interpreted
Echo: Report Reviewed by me
Labs: Labs Reviewed by me
Old Records: Reviewed
[2024-11-26] MEDS: TOPROL XL 12.5 MG PO (08:08)
[2024-11-26] MEDS: ELIQUIS 5 MG PO (08:08)
[2024-11-26] MEDS: LASIX 40 MG PO (08:08)
[2024-11-26] MEDS: LIPITOR 20 MG PO (08:08)
[2024-11-26] MEDS: ZESTRIL 5 MG PO (08:09)
--- NOTE | 2024-11-26 09:20 | PTCARENOTE ---
Rec'd pt this shift awake and alert in bed. Pt NSR on monitor. Pt denies N/V and abdominal pain. Pt c/o rt shoulder pain. Tylenol given. Pt on RA, lungs clear. See worklist for VS/I and O and assessments.
--- NOTE | 2024-11-26 09:58 | CM ---
Addendum entered by Argentina Cash 11/26/24 13:23:
Mr Nichols is ready for transfer to [facility] today. The telephone number for report is [phone] and the fax number is [phone]. Unit Sec. made ambulance arrangements with [facility] for 2:00p.m. transport time. Updated Mr. Nichols
and his significant other, Tahira. Telephone call to [facility]missions to update them on transfer date and time. The discharge plan is to go to [facility] when medically stable.
Original Note:
Reviewed chart. Received approval for SNF Rehab. at [facility]. The Auth. Number is [id number], ( 11/25/24 to 12/25/24) LCD 12/24/24. TT attending physician regarding bed availability and if medically stable for transfer. Medical work-up in
progress. The discharge plan is to go to [facility] when medically stable.
[2024-11-26 11:47] VITALS: BP 90/62
--- NOTE | 2024-11-26 12:11 | W.PN.HOSP.TC ---
Today's Communication/Plan
-
dc to SNF
Assessment / Plan
Assessment / Plan
HPI: 69-year-old male with a complex past medical history and unfortunately is unable to provide much history. Was present with the patient has a history of atrial fibrillation on anticoagulation, he has a preserved EF, he has a history of benign
brain tumor status post resection, he also has a history of thyroid nodules and lung nodule status post radiation, hypertension, hyperlipidemia and BPH who presents to the emergency department following a fall at home where he was called twice
before agreeing to come along with EMS.
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 Caregiver thought the patient might have some volume overload. At the time he was diagnosed with bronchitis and started on Augmentin and
doxycycline. Patient apparently was noncompliant. He does not take his Eliquis is not as a take the antibiotics that were prescribed including the Augmentin.
Pt completed Atrial Flutter ablation 11/22/24
#Rapid atrial fibrillation, known
Patient not compliant with taking his Cardizem or Eliquis
as per cardio, okay to resume Eliquis
Now in NSR post ablation
#Acute on chronic heart failure with a preserved ejection fraction
Trend creatinine, trend daily weights
#Acute kidney injury
Creatinine 1.3-->1.6-->1.7-->2.1-->1.7-->1.3
Trend creatinine
#Acute urinary retention requiring Vale insertion on 11/20
Maintained Vale for 3 days, started on Flomax
Reports he is removing his bowels. Vale removed
#Essential hypertension
Hold lisinopril 20 mg daily due to SRIDHAR
reviewed situation with Dr. Lopez
Lisinopril is now 5 mg daily and will resume
will change Lasix to 40 mg po bid
#Medical noncompliance
#Fall
Patient lives with his girlfriend, who would like him placed
PT/OT
As per CM, should have arrangements completed for dc tomorrow
#Tremors
Possibly intentional tremor, monitor, consider beta-carlos
#Recent bronchitis
Finish course of doxycycline, will complete tonight
#Cognitive impairment suspicious for dementia
Patient thinks it is 2004
TSH and B12 normal
Recommend neuropsychiatric testing outpatient
#Hyperlipidemia
Continue statin
#Obesity due to excess calories
Affects all aspects of care
DVT prophylaxis�Eliquis
Full code
Input of Dr. Lopez appreciated
will dc to SNF now
see dictated note
More than 30 minutes spent in discharge including
Final examination of the patient
Summarizing hospital stay
Instructions for continuing care to all relevant caregivers
Preparation of discharge records, prescriptions, and referral forms
Total time spent (in minutes): 45
Anticipated Discharge: Today
Subjective/Interval History
-
Date of Service: November 26, 2024
Feels well, in good spirits. He pulled out IV and refused labs today
Objective Data
-
Vital Signs:
Vital Signs
Temp Pulse Resp BP Pulse Ox
98 F 91 20 106/67 97
11/26/24 11:46 11/26/24 08:09 11/26/24 11:46 11/26/24 08:09 11/26/24 11:46
I&O
11/25/24 11/26/24 11/27/24
06:59 06:59 06:59
Intake Total 600 / 600 1080 / 1080 1500 / 1500
Output Total 2450 / 2450 2200 / 2200 100 / 100
Balance -1850 / -1850 -1120 / -1120 1400 / 1400
Review of Systems
-
History Source: Patient and Coordinated Provider
Constitutional: Denies Fever
EENT: Reports No Symptoms Reported
Respiratory: Reports No Symptoms
Cardiac: Reports No Symptoms
Physical Exam
-
General: Well Developed, Well Nourished, No Apparent Distress and Comfortable
HEENT: Normocephalic, Atraumatic and Moist Mucous Membranes
Respiratory: Clear to Auscultation
Cardiac: Regular Rhythm and S1/S2
GI: Soft, Nontender and Nondistended
Musculoskeletal: No Clubbing, No Cyanosis and No Edema
Neuro: Awake, Alert, Oriented and Other (conversant, mental status impaired, probably at baseline)
--- NOTE | 2024-11-26 13:01 | W.DS.TRANS ---
DC Summary - [facility] Therapist
-
Discharge Instructions:
Sleep Apnea Risk Low
Discharge Diagnosis/Procedures Atrial Flutter, s/p ablation
Diet Regular,No added salt
Activity With assistance
Driving Restrictions No driving
Bathing Restrictions None
Others Tests CBC, CMP in 5-7 days
Instructions: *PCP/Other Human Resources Intern Heart Failure Instructions
Stand-Alone Forms: DC Instructions- Cath/EP Lab
Changes to Home Medications: Yes
Discharge Medications:
DC Medications w/original date entered in [facility]
atorvastatin 20 mg tablet 20 mg PO DAILY 09/11/22
apixaban 5 mg tablet (Eliquis) 5 mg PO BID 11/20/24
furosemide 40 mg tablet 40 mg PO BID AT 0800,1600 #0 tabs 11/26/24
lisinopril 5 mg tablet 5 mg PO DAILY #0 tabs 11/26/24
metoprolol succinate 25 mg tablet,extended release 24 hr 12.5 mg (1/2 x 25 mg) PO BID #0 tabs 11/26/24
tamsulosin 0.4 mg capsule 0.4 mg PO HS #0 caps 11/26/24
Home Medication Changes
reduced dose of Lisinopril
Diltiazem stopped and placed on Toprol XL
Pending Results: No
[2024-11-26] MEDS: FLUAD (65 yr+) 2024-2025 FORMULA 0.5 ML IM (13:03)
--- NOTE | 2024-11-26 13:21 | PTCARENOTE ---
Report given to rico Plasencia, spoke to Mayuri.
--- NOTE | 2024-11-26 13:23 | PTCARENOTE ---
IV d/c'd by patient overnight, Dr. Molina aware. Okay to leave out due to patient being transferred to [facility].
== END 2024-11-26 14:12 | DRG 273 ==
LOC: IVU 06:08
PROVIDERS: Emergency Medicine; Family Medicine; Internal Medicine Cardiovascular Disease; Nurse Practitioner; Nurse Practitioner Family; ADMITTING PHYSICIAN Internal Medicine; ATTENDING PHYSICIAN Internal Medicine; CONSULT PHYSICIAN Internal Medicine; EMERGENCY PHYSICIAN Student in an Organized Health Care Education/Training Program; FAMILY PHYSICIAN Family Medicine
PROC: 4A0234Z Measurement of Cardiac Electrical Activity, Percutaneous Approach (ICD-10-PCS; 2024-11-22)
PROC: 02583ZZ Destruction of Conduction Mechanism, Percutaneous Approach (ICD-10-PCS; 2024-11-22)
PROC: B24BZZ4 Ultrasonography of Heart with Aorta, Transesophageal (ICD-10-PCS; 2024-11-22)
PROC: 4A023FZ Measurement of Cardiac Rhythm, Percutaneous Approach (ICD-10-PCS; 2024-11-22)
PROC: 02K83ZZ Map Conduction Mechanism, Percutaneous Approach (ICD-10-PCS; 2024-11-22)
PROC: 3E02340 Introduction of Influenza Vaccine into Muscle, Percutaneous Approach (ICD-10-PCS; 2024-11-26)
DX: I48.3 Typical atrial flutter (principal); I50.33 Acute on chronic diastolic (congestive) heart failure; I13.0 Hypertensive heart and chronic kidney disease with heart failure and stage 1 through stage 4 chronic kidney disease, or unspecified chronic kidney disease; N17.9 Acute kidney failure, unspecified; J44.0 Chronic obstructive pulmonary disease with (acute) lower respiratory infection; I48.0 Paroxysmal atrial fibrillation; E78.00 Pure hypercholesterolemia, unspecified; N40.1 Benign prostatic hyperplasia with lower urinary tract symptoms; I25.10 Atherosclerotic heart disease of native coronary artery without angina pectoris; F03.A0 Unspecified dementia, mild, without behavioral disturbance, psychotic disturbance, mood disturbance, and anxiety; R29.6 Repeated falls; R33.8 Other retention of urine; N18.9 Chronic kidney disease, unspecified; I44.7 Left bundle-branch block, unspecified; J20.9 Acute bronchitis, unspecified; E66.09 Other obesity due to excess calories; Z23 Encounter for immunization; Z68.33 Body mass index [BMI] 33.0-33.9, adult; Z79.01 Long term (current) use of anticoagulants; Z79.899 Other long term (current) drug therapy; Z86.011 Personal history of benign neoplasm of the brain; Z87.891 Personal history of nicotine dependence; Z91.148 Patient's other noncompliance with medication regimen for other reason; Z92.3 Personal history of irradiation
CPT/HCPCS: 51702; 51798; 70450; 71046; 76937; 80048; 80053; 80061; 81003; 81015; 82607; 82962; 83605; 83735; 83880; 84443; 85025; 85027; 85347; 85610; 86803; 86850; 86900; 86901; 87086; 90662; 93005; 93306; 93653; 93662; 94640; 96365; 96366; 96375; 97116; 97163; 97167; 97530; 97535; 99291; C1730; C1733; C1759; C1766; C1892; C1894; G0008; Q9950